=== PATIENT | female | born 1960 | race Caucasian/White ===

== ENCOUNTER 2019-01-21 08:03 | Inpatient (IN) ==
--- NOTE | 2018-12-26 12:43 | Anesthesiology Consultation ---
Date of Service December 26, 2018 Assessment & Plan (1) Encounter for pre-operative examination: PCP Clearance 01/06: "Medical problems as listed above are currently compensated. Medical clearance is approved." Chart Review Chart Review: Acceptable Risk for Surgery and Patient seen in Pre Admission Testing Teaching & Discussion Instructed NPO after midnight before surgery, except medications with 15 cc of water. Medication instructions provided according to the PAT guidelines. History Surgery Operation Date: 01/21/19 13:35 Proposed Procedures p Right Knee Poly Exchange with Possible Revision - Anish Lord DO Height/Weight Height: 5 ft 1 in Weight: 109.3 kg Allergies Allergy/AdvReac Type Severity Reaction Status Date / Time moxifloxacin Allergy Intermediate RASH, EARS Verified 12/24/18 15:26 SWELLED Medications Home Medications Medication Instructions Recorded Confirmed Last Taken B-complex with vitamin C [Super B 1 tab PO QAM 07/31/18 12/24/18 Unknown Complex-Vitamin C] Lactobacillus rhamnosus GG 1 cap PO QAM 07/31/18 12/24/18 Unknown [Culturelle] alirocumab [Praluent Pen] See Rx Instructions .ROUTE .COMPLEX 07/31/18 12/24/18 Unknown alprazolam 0.5 mg PO TID PRN 07/31/18 12/24/18 Unknown amlodipine 5 mg PO QAM 07/31/18 12/24/18 Unknown ascorbic acid (vitamin C) [Vitamin 1 tab PO QDD 07/31/18 12/24/18 Unknown C] aspirin [Aspirin Low Dose] 81 mg PO QAM 07/31/18 12/24/18 Unknown cholecalciferol (vitamin D3) 1,000 unit PO QAM 07/31/18 12/24/18 Unknown [Vitamin D3] chromium picolinate 1,000 mcg PO QAM 07/31/18 12/24/18 Unknown cinnamon bark [Cinnamon] 1,000 mg PO BID 07/31/18 12/24/18 Unknown coQ10 (ubiquinol) 200 mg PO QAM 07/31/18 12/24/18 Unknown cyanocobalamin (vitamin B-12) 5,000 mcg SUBLINGUAL QAM 07/31/18 12/24/18 Unknown [Vitamin B-12] hydrocodone-acetaminophen 1 tab PO Q8H PRN 07/31/18 12/24/18 Unknown insulin detemir U-100 [Levemir 40 unit SUBCUT HS 07/31/18 12/24/18 Unknown FlexTouch U-100 Insuln] melatonin 0.5 mg PO HS PRN 07/31/18 12/24/18 Unknown meloxicam 7.5 mg PO BID 07/31/18 12/24/18 Unknown metformin [Glumetza] 500 mg PO PM 07/31/18 12/24/18 Unknown multivitamin 1 tab PO QAM 07/31/18 12/24/18 Unknown mv-min-vit C-Glu-Adele ac-hb124 4 tab PO QAM PRN 07/31/18 12/24/18 Unknown [Airborne (with lysine acetate)] omega 4-ila-bls-fish oil [Fish Oil] 1 cap PO HS 07/31/18 12/24/18 Unknown omeprazole magnesium [Prilosec OTC] 20 mg PO QAM 07/31/18 12/24/18 Unknown potassium chloride [Klor-Con 10] 10 meq PO QAM 07/31/18 12/24/18 Unknown sertraline 50 mg PO HS 07/31/18 12/24/18 Unknown simvastatin 10 mg PO PM 07/31/18 12/24/18 Unknown sitagliptin [Januvia] 100 mg PO QAM 07/31/18 12/24/18 Unknown turmeric-turmeric root extract 1 cap PO QAM 07/31/18 12/24/18 Unknown valsartan-hydrochlorothiazide 1 tab PO QAM 07/31/18 12/24/18 Unknown ascorbic acid-vitamin E-biotin 3 tab PO QAM 12/24/18 12/24/18 Unknown [Hair, Skin, Nails with Biotin] Past Medical History Medical History Anxiety Bowel and bladder incontinence Bowel incontinence 2/2 IBS-D; patient describes acute colonic spasms and urgent need to defecate. Bladder incontinence has been for "decades," was present prior to reported back injury and lumbar pain issues. Bunion, left foot Depression Diabetes mellitus, type 2 A1C 7.0% 12/26/18. On insulin and metformin. GERD (gastroesophageal reflux disease) Glaucoma was told "borderline" Hearing deficit Herniated disc Had acute injury 2012, chronic pain since. Follows with Dr. Alfonso for injections and has seen Dr Munguia for evaluation. Hx of bursitis right hip Hx of fracture of left hip no surgery Hyperlipidemia Hypertension Hyponatremia 127 on pre-op labs. Reviewed by PCP, felt 2/2 recent corticosteroid injection. Irritable bowel syndrome Osteoarthritis Peptic ulcer disease Sleep apnea does not use any device -- COULD NOT TOLERATE CPAP Spinal stenosis s/p Injection with Dr Alfonso 12/03 Spondylolisthesis Exercise / Class Metabolic Activity III < 4 Walking/Shop/Light housework (Walks at home with cane, uses scooter for longer distances 2/2 back and hip pain. Denies chest pain, occ SOB 2/2 deconditioning) Past Family History Family History Mother Family history of diabetes mellitus Father Family history of diabetes mellitus Brother Family history of diabetes mellitus Grandfather (Maternal) Family history of diabetes mellitus Grandmother (Maternal) Family history of diabetes mellitus Past Surgical History Surgical History History of cholecystectomy History of colonoscopy Hx of arthroscopic knee surgery 2 right and 1 left; gaxiola cyst removal Hx of hysterectomy ovaries remain Hx of total knee replacement right and left Past Anesthesia History No Hx of Anesthesia Complications (other than PONV) and No Family Hx of Anesthesia Complications History of PONV No Hx of Motion Sickness and History of PONV Social History Smoking Status: Former smoker tobacco type: cigarettes Do You Dip or Chew Tobacco: No Smoking End Date: QUIT 5 TO 6 YEARS AGO Hx Alcohol Use: Yes Alcohol type: hard liquor alcohol intake frequency: holidays/special occasions only Hx Substance Use: No substance use type: does not use Review of Systems Pt denies any recent chest pain, shortness of breath, palpitations, cough, fever or URI. Physical Exam Vital Signs BP: 120/72 P: 90bpm SPO2: 94% RA T: 98.1 F R: 16 Constitutional + morbidly obese ENMT Mouth: + dental restorations (one crown); no chipped teeth and no loose teeth Thyromental Distance: > or= 3.5 Finger Breadths (4) Mallampati Class: III Neck + short neck and + thick neck; neck extension not limited Respiratory normal respiratory effort Auscultation: lungs clear to auscultation bilaterally Cardiovascular Rate/Rhythm: regular rate and regular rhythm Heart Sounds: no murmur Vessels: no carotid bruit Extremities: no edema Testing Electrocardiogram Date: 08/08/18 Findings: + NSR @ (91) Rightward axis. Chest X-Ray Date: 08/08/18 Findings: + NAD Laboratory Results 12/26/18 13:10 12/26/18 13:10 PT 10.1 Seconds (9.0-12.0) 12/26/18 13:10 INR 1.0 (0.9-1.1) 12/26/18 13:10 APTT 31.3 Seconds (21.0-31.0) H 12/26/18 13:10 7.0 % (4.5-5.6) H 12/26/18 13:10 Yellow 12/26/18 13:10 Clear (Clear) 12/26/18 13:10 5.0 (4.5-7.5) 12/26/18 13:10 Ur Specific [place] 1.011 (1.000-1.030) 12/26/18 13:10 Negative (Negative) 12/26/18 13:10 Negative (Negative) 12/26/18 13:10 Negative (Negative) 12/26/18 13:10 Negative (Negative) 12/26/18 13:10 Ur Leukocyte Esterase Negative (Negative) 12/26/18 13:10 Blood Type O Positive 12/26/18 13:10 Antibody Screen NEGATIVE 12/26/18 13:10 12/26/18 13:10 Urine Culture - Final Urine,Clean Catch Gram positive bacilli Due to computer error, some headers in lab table above not pulling into document. A1C was 7.0%. See diagnostics tab for further detail. Surgeon's office notified of + UA.
[2018-12-26 13:46] LABS: Basophils # (auto) 0.02 K/uL (0-0.2); Basophils % (auto) 0.2 %; Eosinophils # (auto) 0.14 K/uL (0-0.5); Eosinophils % (auto) 1.7 %; Hematocrit (blood only) 38.3 % (37-47); Hemoglobin 13.8 g/dL (12.0-16.0); Immature Granulocytes # (auto) 0.03 K/uL (0.00-0.02); Immature Granulocytes % (auto) 0.4 %; Lymphocytes # (auto) 1.71 K/uL (1.2-3.4); Lymphocytes % (auto) 21.3 %; Mean Corpuscular Volume 83.8 fL (80-100); Mean Platelet Volume 8.4 fL (7.4-10.4); Monocytes # (auto) 0.57 K/uL (0.11-0.59); Monocytes % (auto) 7.1 %; Neutrophils # (auto) 5.54 K/uL (1.4-6.5); Neutrophils % (auto) 69.3 %; Platelet Count 307 K/uL (130-400); RDW Coefficient of Variation 13.6 % (11.5-14.5); RDW Standard Deviation 41.3 fL (36.4-46.3); Red Blood Count 4.57 M/uL (4.2-5.4); White Blood Count 8.01 K/uL (4.8-10.8)
[2018-12-26 14:05] LABS: Partial Thromboplastin Ratio 1.2; Partial Thromboplastin Time 31.3 Seconds (21.0-31.0); Prothrombin Time 10.1 Seconds (9.0-12.0)
[2018-12-26 14:28] LABS: Appearance Urine Clear (Clear); Bilirubin Urine Negative (Negative); Blood Urine Negative (Negative); Color Urine Yellow; Glucose Urine UA Negative (Negative); Ketones Urine Negative (Negative); Leukocyte Esterase Urine Negative (Negative); Nitrite Urine Negative (Negative); Protein Urine Negative (Negative); Specific Gravity Urine 1.011 (1.000-1.030); Urobilinogen Urine Negative (Negative)
[2018-12-26 14:32] LABS: Estimated Average Glucose 154 mg/dl
[2018-12-26 15:33] LABS: BUN Creatinine Ratio 13.6 (10-20); Calcium 10.2 mg/dl (8.5-10.1); Creatinine Clr Calc Pharmacy 65.3 ml/min; Est GFR (Non-African American) 56.1; Potassium 4.1 mmol/L (3.5-5.1)
[~2019-01-21 08:03] MED LIST: ACETAMINOPHEN 500 MG TAB PO SCH; BUPIVACAINE 0.5 % 5 MG/1 ML PF 10ML VIAL ONE; CEFAZOLIN 2000MG 2,000 MG/15 ML SYR IV SCH; CeleBREX 200 MG CAP PO SCH; FAMOTIDINE 20 MG TAB PO SCH; GABAPENTIN 300 MG PO SCH; LR 500ML BOLUS, THEN 15ML/HR IV SCH; METOCLOPRAMIDE HCL 10 MG TABLET PO SCH; ROPIVACAINE 0.5% 5 MG/ML 30 ML VIAL ONE; SCOPOLAMINE 1.5 MG TDSY TD SCH; TRANEXAMIC ACID 1,000 MG **IV Intra-op IV SCH; TRANEXAMIC ACID 1,000 MG **IV Pre-op IV SCH; dexAMETHasone 4 MG TAB PO SCH
--- NOTE | 2019-01-21 08:30 | History & Physical Bridge Note ---
Date of Service January 21, 2019 History & Physical Bridge Note I have examined the patient, reviewed the History & Physical and in the interval since the performance of the History & Physical I have noted the following changes of clinical significance: possible revision knee arthroplasty
[2019-01-21] MEDS ORDERED: fentaNYL citrate 100 MCG/2 ML VIAL ONE (09:11)
[2019-01-21] MEDS ORDERED: MIDAZOLAM HCL 1 MG/ML 2ML VIAL ONE (09:11)
[2019-01-21] MEDS ORDERED: ATROPINE SULFATE 0.1 MG/ML 10ML SYR IV PRN (10:01)
[2019-01-21] MEDS ORDERED: fentaNYL citrate 100 MCG/2 ML VIAL IV PRN (10:01)
[2019-01-21] MEDS ORDERED: ONDANSETRON INJ 2 MG/ML 2 ML VIAL IV PRN ×2 (10:01→12:53)
[2019-01-21] MEDS ORDERED: ePHEDrine sulfate 50 MG/ML AMP IV PRN (10:01)
[2019-01-21] MEDS ORDERED: BACITRACIN INJ 50,000 UNIT VIAL ONE (10:09)
[2019-01-21] MEDS ORDERED: POVIDONE-IODINE OP SOLN 30 ML BTL ONE (10:09)
[2019-01-21] MEDS ORDERED: LIDOCAINE HCL 2% 2 ML VIAL/AMP(20MG/ML) INFIL ONE (10:33)
[2019-01-21] MEDS ORDERED: PROPOFOL IV EMULSION 10 MG/ML 20 ML VIAL IV ONE (10:33)
[2019-01-21] MEDS ORDERED: ONDANSETRON INJ 2 MG/ML 2 ML VIAL ONE (10:33)
--- NOTE | 2019-01-21 11:05 | Operative Report ---
Post Operative Report Pre & Post Diagnosis Operation Date: 01/21/19 11:00 Pre-Op Diagnosis: Painful status post right total knee arthroplasty Procedure Loose poly-right total knee arthroplasty with upsized poly-to size one 2 x 13 mm poly-cristian 1 right total knee arthroplasty Operation Date: 01/21/19 11:00 <No data on this case meets the specified criteria> Surgeon Anish Lord DO [employer] Gama VARGAS Estimated Blood Loss 5 Findings Consistent with Post-Op Diagnosis Patient presents with clinical examination with ligament laxity medial lateral collateral ligaments in need of change of poly-no evidence of tibial component loosening femoral component loosening or patellar loosening is noted examination consistent with that of laxity in extension mid flexion and flexion the poly-was noted to be worn and was in need of upsized Specimens Poly- Drains None Complications none Disposition Accompanied Patient To Recovery: No Disposition: Recovery Room Indications Patient presents with a clear examination of ligamentous laxity in extension mid flexion and flexion no response to conservative management including bracing physical therapy anti-inflammatories relative rest activity modification pain presents for poly-change upsizing poly- Description of Procedure After proper prepping draping the right lower extremity the right knee was examined there is a be evidence of market laxity as noted above in both flexion extension mid flexion subsequently after proper prepping draping the right upper extremity and anterior incision was made dissection carried down the region of the extensor mechanism medial parapatellar incision was made the patella was subluxed lateralward no evidence of any type of inflammation or synovitis was noted no no type of infectious issue were noted there is clearly laxity attributed to the polyethylene size and the poly-was removed wound was irrigated with copious muscle sterile saline solution tibial component femoral component patellar component were all inspected no evidence of loosening was noted patella was trialed the poly-was trialed to a size 13 gave excellent full stability in both extension flexion mid flexion having upsized the poly-the poly-was subsequently changed out the wound was irrigated once again with copious sterile saline solution the medial parapatellar incision closed #1 Vicryl subcuticular 2-0 Vicryl skin was closed with a skin clips sterile compressive dressing was placed patient was taken recovery in stable condition operative report dictated by Pop VARGAS was necessary prepping draping retraction wound closure was necessary for the case I attest to the content of the Intraoperative Record and any orders documented therein. Any exceptions are noted below.
--- NOTE | 2019-01-21 11:52 | XRay Report ---
RIGHT KNEE 2 VIEWS History: Right total knee arthroplasty. Degenerative arthritis. Postop. FINDINGS: The patient is status post a right total knee arthroplasty. The hardware is intact. No frac ture or dislocation. Skin jerome are in place. IMPRESSION: Right total knee arthroplasty. No evidence for hardware complication. Electronically signed by: Mau Aburto M.D. 01/21/2019 11:50 AM
--- NOTE | 2019-01-21 12:20 | Anesthesiology Progress Note ---
Date of Service January 21, 2019 Anesthesia Post Procedure Vital Signs Vital Signs: Temp Pulse Pulse Resp BP Pulse Ox 01/21/19 12:10 97.9 F 89 14 115/71 95 01/21/19 12:00 87 16 114/70 96 01/21/19 11:50 87 14 121/66 100 01/21/19 11:40 88 15 106/70 98 01/21/19 11:30 96.8 F L 88 13 101/62 98 01/21/19 08:37 98.6 F 88 20 123/65 95 Pain Intensity Right Knee: Pain Intensity: 0 Transfer of Care Handoff Completed per policy Notes Mental Status: alert / awake / arousable and participated in evaluation Patient Amnestic to Procedure: Yes Nausea / Vomiting: adequately controlled Pain: adequately controlled Airway Patency, RR, SpO2: stable & adequate BP & HR: stable & adequate Hydration State: stable & adequate Neuraxial Anesthesia: was administered and sensory block is resolving Anesthetic Complications: no major complications apparent and Pt Satisfied with anesthetic care
[2019-01-21] MEDS ORDERED: BISACODYL 10 MG SUPP PR PRN (12:53)
[2019-01-21] MEDS ORDERED: NALOXONE HCL 0.4 MG/1 ML VIAL/CARP IV PRN (12:53)
[2019-01-21] MEDS ORDERED: MAGNESIUM HYDROXIDE SUSP 30 ML UDC PO PRN (12:53)
[2019-01-21] MEDS ORDERED: SODIUM CHLORIDE 0.9% 1000ML 1,000 ML IV SCH (12:53)
[2019-01-21] MEDS: ACETAMINOPHEN 500 MG TAB PO SCH ×2 (13:14→20:54)
[2019-01-21] MEDS ORDERED: INSULIN DETEMIR FLEXPEN/FLEX TOUCH 100 UNITS/ML 3ML SQ STA (13:41)
[2019-01-21] MEDS ORDERED: PHARMACY GLYCEMIC MGMT CONSULT PRN (13:41)
[2019-01-21] MEDS ORDERED: INSULIN ASPART 100 UNITS/ML 3 ML PEN SC SCH (14:00)
--- NOTE | 2019-01-21 15:06 | Pharmacy Report ---
Glycemic Control Consultation - Date of Service January 21, 2019 - Scope Scope: Glycemic Pharmacist consulted by Gama Archer on 01/21/19 for glycemic control and to write orders per [facility] inpatient glycemic control protocol - Objective Weight: 108 kg Accuchecks BSG (last 24hrs): 01/21/19 01/21/19 08:37 11:33 POC Glucose 180 H 171 H HbA1c: 7.0 % (4.5-5.6) H 12/26/18 13:10 - Recent Pertinent Medications Outpatient Anti-diabetic Regimen: * Levemir 40u HS, Metformin, Januvia * A1c = 7.0 % 12/26/18 - Assessment & Plan Assessment & Plan: ASSESSMENT: * Pt is a 58yo F s/p TKA. PMHx consistent with HLD, MARIANELA, GERD, DMII, among others. Oupt glycemic management is improving, previous A1C 8.2% now 7.0%. She is maintained on Levemir 40u HS, Metformin, Januvia. She received DXM 8mg PO krishna-operatively. She is ordered a diet. * [employer]: evening 01/20/19 @2100 she received 20u Levemir PLAN FOR INPATIENT GLYCEMIC CONTROL: * Holding outpatient oral diabetes medications * Basal insulin * Levemir 40units as soon as she reaches the floor then levemir scale this evening X1. See MAR for further details * Bolus insulin * NovoLog per scale ACHS or Q6hrs while NPO * Goal Range: Low 110 mg/dL - High 140 mg/dL * Correction Factor: 15 mg/dL/unit * Nutritional / Prandial insulin per carb ratio of 1 unit per 5 grams CHO consumed * adding 00,04 checks * Please note that the plan above was derived based on current level of insulin resistance and hospital stress. These recommendations are appropriate for inpatient admission only. Plan of care upon discharge will need to be reassessed to avoid potential outpatient hypo/hyperglycemia. Thank you.
[2019-01-21 15:21] LABS: iSTAT Creatinine 0.9 mg/dl (0.6-1.3); iSTAT Hemoglobin 12.6 g/dl (12.0-16.0); iSTAT Ionized Calcium 1.29 mmol/l (1.12-1.32); iSTAT Potassium 3.6 mEq/L (3.3-5.0)
--- NOTE | 2019-01-21 15:28 | Consultation ---
Date of Consultation January 21, 2019 Assessment & Plan (1) Painful total knee replacement, right: S/P Loose poly-right total knee arthroplasty with upsized poly-to size one 2 x 13 mm poly-journey 1 right total knee arthroplasty By Dr. Lord POD # 0 tolerated procedure well EBL 5ml pain/wound per ortho activities and therapy as directed by ortho monitor cbc for acute blood loss anemia Pre Op H/H 12.6/37 incentive spirometry encouraged (2) Diabetes mellitus, type 2: A1C 7.0 Pt on Januvia, metformin, Levemir 40 units daily as outpt Glycemic pharmacist consulted per ortho (3) Hypertension: blood pressure acceptable place HCTZ on hold and reevaluate volume status in a.m. continue amlodipine and valsartan (4) Hyperlipidemia: continue statin (5) Depression: mood stable, continue zoloft (6) DVT prophylaxis: SCDS/TEDS ASA bid x 1 month per ortho Disposition: per primary Follow up: PCP at [facility] upon discharge Patient was seen and examined in collaboration with Dr. Kennedy, please see addendum Starting 01/22/19 patient will be under the care for Dr. Avalos Supervising Physician Co-Signing Physician Notes Patient is a 58-year-old female with history of hypertension, diabetes, obstructive sleep apnea, dyslipidemia and other problems who was seen and examined postop after having right TKA. Patient is doing well postop. Complains of mild pain of the right knee at surgical site. Denies any chest pain, shortness of breath, dizziness, abdominal pain. On exam patient is obese, no apparent distress, normocephalic atraumatic, lungs are clear to auscultation, S1-S2, no murmur, abdomen soft nontender, right knee surgical site in dressing, grossly no focal neurological deficits, no pedal edema. Hold p.o. diabetic medications. Insulin therapy while hospitalized. Agree with above assessment and plan and management. I personally reviewed the record. Patient is interviewed and examined at bedside. Patient's care is coordinated with Rianna Serrano PA-C. Please refer to the documentation above for details of patient's presentation and for discussion of other issues. History of Present Illness Requesting Physician: Dr. Lord Reason for Consultation: Postop medical management Attending Physician: Anish Lord, DO History of Present Illness This is a 58-year-old female who has a significant PMH of HTN, HLD, T2 DM, MARIANELA intolerant to CPAP, OADJD, depression and anxiety, LSS, PUD who presents to [facility] for elective right TKA poly-exchange by Dr. Lord. is at bedside. Patient has history of prior bilateral TKAs approximately 10 years ago. Has been having chronic right knee pain. She tolerated procedure well. Currently she feels well. Denies any current pain. Denies any fever, chills, sweats, lightheadedness, dizziness, chest pain, shortness breath, nausea, vomiting, diarrhea, abdominal pain. Allergies Allergy/AdvReac Type Severity Reaction Status Date / Time moxifloxacin Allergy Intermediate RASH, EARS Verified 01/21/19 08:31 SWELLED Home Medications Home Medications Medication Instructions Recorded Confirmed Type B-complex with vitamin C [Super B 1 tab PO QAM 07/31/18 01/21/19 History Complex-Vitamin C] Lactobacillus rhamnosus GG 1 cap PO QAM 07/31/18 01/21/19 History [Culturelle] alirocumab [Praluent Pen] See Rx Instructions .ROUTE .COMPLEX 07/31/18 12/24/18 History alprazolam 0.5 mg PO TID PRN 07/31/18 01/21/19 History amlodipine 5 mg PO QAM 07/31/18 01/21/19 History ascorbic acid (vitamin C) [Vitamin 1 tab PO QDD 07/31/18 12/24/18 History C] aspirin [Aspirin Low Dose] 81 mg PO QAM 07/31/18 01/21/19 History cholecalciferol (vitamin D3) 1,000 unit PO QAM 07/31/18 01/21/19 History [Vitamin D3] cinnamon bark [Cinnamon] 1,000 mg PO BID 07/31/18 01/21/19 History coQ10 (ubiquinol) 200 mg PO QAM 07/31/18 01/21/19 History cyanocobalamin (vitamin B-12) 5,000 mcg SUBLINGUAL QAM 07/31/18 01/21/19 History [Vitamin B-12] hydrocodone-acetaminophen 1 tab PO Q8H PRN 07/31/18 01/21/19 History insulin detemir U-100 [Levemir 40 unit SUBCUT HS 07/31/18 01/21/19 History FlexTouch U-100 Insuln] melatonin 0.5 mg PO HS PRN 07/31/18 01/21/19 History meloxicam 7.5 mg PO BID 07/31/18 01/21/19 History metformin [Glumetza] 500 mg PO PM 07/31/18 01/21/19 History multivitamin 1 tab PO QAM 07/31/18 01/21/19 History mv-min-vit C-Glu-Adele ac-hb124 4 tab PO QAM PRN 07/31/18 01/21/19 History [Airborne (with lysine acetate)] omega 1-lxo-mxu-fish oil [Fish Oil] 1 cap PO HS 07/31/18 01/21/19 History omeprazole magnesium [Prilosec OTC] 20 mg PO QAM 07/31/18 01/21/19 History potassium chloride [Klor-Con 10] 10 meq PO QAM 07/31/18 01/21/19 History sertraline 50 mg PO HS 07/31/18 01/21/19 History simvastatin 10 mg PO PM 07/31/18 01/21/19 History sitagliptin [Januvia] 100 mg PO QAM 07/31/18 01/21/19 History turmeric-turmeric root extract 1 cap PO QAM 07/31/18 01/21/19 History valsartan-hydrochlorothiazide 1 tab PO QAM 07/31/18 01/21/19 History ascorbic acid-vitamin E-biotin 3 tab PO QAM 12/24/18 12/24/18 History [Hair, Skin, Nails with Biotin] mirabegron [Myrbetriq] 25 mg PO DAILY 01/21/19 01/21/19 History Patient History Family History Mother Family history of diabetes mellitus Father Family history of diabetes mellitus Brother Family history of diabetes mellitus Grandfather (Maternal) Family history of diabetes mellitus Grandmother (Maternal) Family history of diabetes mellitus Social History Preferred Language: Tamazight Communication Ability: Effective Slipper Maker Required: No Beliefs That Will Affect Care: None Current Living Situation: Spouse Other Information That Helps Us Care for You: No Feels Safe at Home: Yes Safety Concerns: Feels Safe At This Time Smoking Status: Former smoker Tobacco Type: cigarettes Do You Dip or Chew Tobacco: No Smoking End Date: QUIT 5 TO 6 YEARS AGO Second Hand Exposure: No Tobacco Cessation Education Requested by Patient: No Hx Alcohol Use: Yes Alcohol type: hard liquor Hx Substance Use: No Review of Systems Review of Systems: As noted per HPI, 10 systems reviewed and negative unless noted above. Physical Exam Physical Exam: Gen: WD/WN, Obese, F, NAD, sitting up in bed, pleasant, conversing easily Head: Normocephalic, Atraumatic Eyes: Sclera normal, no conjunctival injection, PERRLA, EOMI ENT: Gross hearing intact, normal pharynx, mucous membranes moist Neck: supple, no adenopathy, No JVD, no bruit, Resp: Clear to auscultation b/l, no wheeze, rales, rhonchi. Normal insp/exp effort, no accessory muscle use CV: Regular rate, regular rhythm, no murmur, rub, gallop, or ectopy Abd: Obese abdomen, +BS x 4, soft, nontender Musculoskeletal: moves extremities active rom x 2, strength intact, good pastry wrapper strength, lower extremities not examined given post op Extremities: RLE edema, dressing CDI, hemovac in place, No LLE, SCDS/TEDS Skin: warm, moist, no rash, negative turgor, cap refill < 2sec Neuro: Alert and oriented x 3, speech normal, good mood/affect, cran nerve 2-12 intact grossly : deferred Results & Data Vital Signs (Past 12 Hours) Vital Signs Temp Pulse Pulse Resp BP Pulse Ox 01/21/19 14:23 36.6 C 93 H 20 113/69 97 01/21/19 13:38 36.6 C 87 20 110/79 98 01/21/19 13:06 36.5 C 92 H 20 129/75 97 01/21/19 12:40 36.4 C L 91 H 16 124/77 95 01/21/19 12:20 90 13 124/71 96 01/21/19 12:10 36.6 C 89 14 115/71 95 01/21/19 12:00 87 16 114/70 96 06/05/19 11:50 87 14 121/66 100 01/21/19 11:40 88 15 106/70 98 01/21/19 11:30 36.0 C L 88 13 101/62 98 01/21/19 08:37 37 C 88 20 123/65 95 Laboratory Results 01/21/19 01/21/19 01/21/19 Range/Units 11:33 09:59 08:37 POC Hgb 12.6 (12.0-16.0) g/dl POC Hct 37 (37-47) % POC Sodium 137 (135-144) mEq/L POC Potassium 3.6 (3.3-5.0) mEq/L POC Chloride 99 L (101-112) mEq/L POC Total CO2 25 (24-31) mEq/l POC Anion Gap 16.0 (16-25) mmol/L POC BUN 10 (7-18) mg/dl POC Creatinine 0.9 (0.6-1.3) mg/dl POC Glucose 171 H 180 H (70-99) POC Glucose (other) 167 H (70-99) mg/dl POC Ioniz Calcium Phyllis 1.29 (1.12-1.32) mmol/l Blood Type Antibody Screen Crossmatch Draw and Hold 01/21/19 Range/Units 08:27 POC Hgb (12.0-16.0) g/dl POC Hct (37-47) % POC Sodium (135-144) mEq/L POC Potassium (3.3-5.0) mEq/L POC Chloride (101-112) mEq/L POC Total CO2 (24-31) mEq/l POC Anion Gap (16-25) mmol/L POC BUN (7-18) mg/dl POC Creatinine (0.6-1.3) mg/dl POC Glucose (70-99) POC Glucose (other) (70-99) mg/dl POC Ioniz Calcium Phyllis (1.12-1.32) mmol/l Blood Type O Positive Antibody Screen NEGATIVE Crossmatch See Detail Draw and Hold Cancelled Diagnostic Findings R Knee Xray: IMPRESSION: Right total knee arthroplasty. No evidence for hardware complication. Medications Administered Acetaminophen (Tylenol) 1,000 mg PO Q8 MARCELLO Stop: 02/20/19 13:59 Last Admin: 01/21/19 13:14 Dose: 1,000 mg Documented by: [id number] Sodium Chloride (Nss 1000ml) 1,000 mls @ 100 mls/hr IV .Q10H MARCELLO Stop: 01/22/19 06:00 Last Admin: 01/21/19 13:13 Dose: 100 mls/hr Documented by: [id number] Discontinued Medications Acetaminophen (Tylenol) 1,000 mg PO PREOP MARCELLO Stop: 01/21/19 18:00 Last Admin: 01/21/19 08:54 Dose: 1,000 mg Documented by: [id number] Bacitracin (Bacitracin) Confirm Administered Dose 50,000 units .ROUTE .[facility] Stop: 01/21/19 10:10 Last Admin: 01/21/19 11:28 Dose: 50,000 units Documented by: [id number] Celecoxib (Celebrex) 200 mg PO PREOP MARCELLO Stop: 01/21/19 18:00 Last Admin: 01/21/19 08:53 Dose: Not Given Documented by: [id number] Dexamethasone (Decadron) 8 mg PO PREOP MARCELLO Stop: 01/21/19 18:00 Last Admin: 01/21/19 08:52 Dose: 8 mg Documented by: [id number] Famotidine (Pepcid) 20 mg PO PREOP MARCELLO Stop: 01/21/19 18:00 Last Admin: 01/21/19 08:53 Dose: 20 mg Documented by: [id number] Gabapentin (Neurontin) 300 mg PO PREOP MARCELLO Stop: 01/21/19 18:00 Last Admin: 01/21/19 08:54 Dose: 300 mg Documented by: [id number] Lactated Ringer's (Lr) 1,000 mls @ 15 mls/hr IV .Q24H MARCELLO Stop: 01/21/19 18:00 Last Infusion: 01/21/19 10:23 Dose: 0 mls/hr Documented by: [id number] Admin: 01/21/19 08:51 Dose: 15 mls/hr Documented by: [id number] Cefazolin Sodium (Ancef 2000mg) 2,000 mg in 15 mls @ 3.75 mls/min IV PREOP MARCELLO; Protocol Stop: 01/21/19 18:00 Last Admin: 01/21/19 10:21 Dose: 3.75 mls/min Documented by: [id number] Tranexamic Acid 1,000 mg/ (Sodium Chloride) 110 mls @ 660 mls/hr IV TODAY@0600 MARCELLO Stop: 01/21/19 06:09 Last Infusion: 01/21/19 12:41 Dose: 0 mls/hr Documented by: [id number] Admin: 01/21/19 10:06 Dose: 660 mls/hr Documented by: [id number] Tranexamic Acid 1,000 mg/ (Sodium Chloride) 110 mls @ 660 mls/hr IV 0630 [facility] Stop: 01/21/19 06:39 Last Admin: 01/21/19 12:41 Dose: Not Given Documented by: [id number] Insulin Aspart (Novolog Flexpen) 0 units SC ACHS [facility]; Protocol Stop: 02/20/19 13:59 Last Admin: 01/21/19 14:23 Dose: 8 units Documented by: [id number] Cosigned by: [id number] Insulin Detemir (Levemir Flextouch) 40 units SQ NOW STA; Protocol Stop: 01/21/19 13:42 Last Admin: 01/21/19 14:21 Dose: 40 units Documented by: [id number] Cosigned by: [id number] Metoclopramide HCl (Reglan) 10 mg PO PREOP MARCELLO Stop: 01/21/19 18:00 Last Admin: 01/21/19 08:53 Dose: 10 mg Documented by: [id number] Povidone Iodine (Betadine Ophthalmic Prep) Confirm Administered Dose 30 ml .ROUTE .STK-MED ONE Stop: 01/21/19 10:10 Last Admin: 01/21/19 11:28 Dose: 30 ml Documented by: [id number] Scopolamine (Transderm-Scop) 1.5 mg TD PREOP MARCELLO Stop: 01/21/19 18:00 Last Admin: 01/21/19 08:52 Dose: 1.5 mg Documented by: [id number] ECG Rate (beats per minute): 104 Rhythm: sinus tachycardia
[2019-01-21] MEDS ORDERED: CHECK SCOPOLAMINE PATCH PLACEMENT SCH (16:00)
[2019-01-21] MEDS: CEFAZOLIN 2000MG 2,000 MG/15 ML SYR IV SCH (18:04)
[2019-01-21] MEDS: INSULIN ASPART 100 UNITS/ML 3 ML PEN SC SCH ×2 (18:05→21:41)
[2019-01-21] MEDS: OXYCODONE HCL IR 5 MG TAB (IMMEDIATE RELEASE) PO PRN ×3 (18:09→23:03)
[2019-01-21] MEDS: SERTRALINE HCL 50 MG TABLET PO SCH (20:53)
[2019-01-21] MEDS: SENNA 8.6 MG TAB PO SCH (20:53)
[2019-01-21] MEDS: ASPIRIN 81 MG ECTAB PO SCH (20:53)
[2019-01-21] MEDS: SIMVASTATIN 10 MG TAB PO SCH (20:53)
[2019-01-21] MEDS: DOCUSATE SODIUM 100 MG CAP PO SCH (20:53)
[2019-01-21] MEDS ORDERED: INSULIN DETEMIR FLEXPEN/FLEX TOUCH 100 UNITS/ML 3ML SC ONE (21:00)
[2019-01-21] MEDS: ALPRAZolam 0.5 MG TABLET PO PRN (21:40)
[2019-01-22] MEDS: INSULIN ASPART 100 UNITS/ML 3 ML PEN SC SCH ×6 (00:05→21:36)
[2019-01-22] MEDS: CEFAZOLIN 2000MG 2,000 MG/15 ML SYR IV SCH (01:30)
[2019-01-22] MEDS: HYDROmorphone INJ 0.5 MG/0.5 ML SYR IV PRN ×2 (02:45→07:16)
[2019-01-22] MEDS: ACETAMINOPHEN 500 MG TAB PO SCH ×3 (06:27→20:37)
[2019-01-22 07:02] LABS: Hematocrit (blood only) 35.4 % (37-47); Hemoglobin 12.3 g/dL (12.0-16.0); Mean Corpuscular Hgb Conc 34.7 g/dL (32-36); Mean Corpuscular Volume 86.6 fL (80-100); Mean Platelet Volume 8.5 fL (7.4-10.4); Platelet Count 293 K/uL (130-400); RDW Coefficient of Variation 13.8 % (11.5-14.5); RDW Standard Deviation 43.7 fL (36.4-46.3); Red Blood Count 4.09 M/uL (4.2-5.4); White Blood Count 15.51 K/uL (4.8-10.8)
[2019-01-22 07:31] LABS: BUN Creatinine Ratio 11.7 (10-20); Calcium 9.6 mg/dl (8.5-10.1); Est GFR (African American) 66.5; Est GFR (Non-African American) 57.3; Potassium 3.8 mmol/L (3.5-5.1)
[2019-01-22] MEDS ORDERED: KETOROLAC 30 MG/ML VIAL IV ONE (08:22)
[2019-01-22] MEDS ORDERED: OXYCODONE HCL IR 5 MG TAB (IMMEDIATE RELEASE) PO PRN (08:24)
[2019-01-22] MEDS: PANTOprazole 40 MG TAB PO SCH (08:39)
[2019-01-22] MEDS: CYANOCOBALAMIN (VITAMIN B-12) 2,500 MCG TAB.SUBL SL SCH (08:39)
[2019-01-22] MEDS: VALSARTAN 80 MG TAB PO SCH (08:39)
[2019-01-22] MEDS: MULTIVITAMIN TAB PO SCH (08:39)
[2019-01-22] MEDS: DOCUSATE SODIUM 100 MG CAP PO SCH ×2 (08:39→20:37)
[2019-01-22] MEDS: AMLODIPINE BESYLATE 5 MG TAB PO SCH (08:39)
[2019-01-22] MEDS: MIRABEGRON ER 25 MG TAB PO SCH (08:40)
[2019-01-22] MEDS: CHOLECALCIFEROL 1,000 UNITS TAB PO SCH (08:40)
[2019-01-22] MEDS: ASPIRIN 81 MG ECTAB PO SCH ×2 (08:40→20:38)
[2019-01-22] MEDS: POTASSIUM CHLORIDE 10 MEQ TABCR PO SCH (08:41)
[2019-01-22] MEDS: MoRPHine SULFATE CR 15 MG TABCR PO SCH ×2 (08:44→20:37)
--- NOTE | 2019-01-22 08:55 | Pharmacy Report ---
Pharmacy Glycemic Short Note 2 - Date of Service January 22, 2019 - Glycemic Short BSG Results (Last 24 hours): 01/21/19 01/21/19 01/21/19 09:59 11:33 13:24 Glucose POC Glucose 171 H 197 H POC Glucose (other) 167 H 01/21/19 01/21/19 01/21/19 17:55 21:08 23:48 Glucose POC Glucose 246 H 260 H 219 H POC Glucose (other) 01/22/19 01/22/19 01/22/19 03:40 06:40 08:22 Glucose 130 H POC Glucose 127 H 132 H POC Glucose (other) OUTPATIENT ANTIDIABETIC REGIMEN: * Levemir 40u HS * Metformin 500mg PO HS * Januvia 100mg PO QAM * A1c = 7.0 % 12/26/18 ASSESSMENT: * POD1 TKA - blood sugars at goal, will resume home dose of Levemir tonight and continue CF and CR until blood sugars trend down below goal, then will consider loosening. * May resume oral medications tomorrow and loosen CF and CR at that time. * Oral agents are not recommended for inpatient use d/t drug interactions, changing PO intake, and difficulty titrating for acute hyper/hypoglycemia. ADA recommends re-initiating outpatient oral agents 1-2 days prior to discharge if/when appropriate if they were held on admission. * ADA & AACE recommend a goal blood sugar range 140-180 mg/dl for the majority of critically ill & non-critically ill patients. However, more stringent targets may be selected in individual cases. Will utilize more stringent goal of 110-140mg/dl based on patient age & comorbidities. Additionally, tighter glycemic control is warranted to facilitate wound/infection healing. PLAN FOR INPATIENT GLYCEMIC CONTROL: * Hold outpatient oral diabetes medications * Basal insulin * Levemir 40 units SQ HS * Bolus insulin * NovoLog per scale ACHS or Q6hrs while NPO * Goal Range: Low 110 mg/dL - High 140 mg/dL * Correction Factor: 15 mg/dL/unit * Nutritional / Prandial insulin per carb ratio of 1 unit per 5 grams CHO consumed PLAN FOR DISCHARGE: * A1c 7.0% - continue current regimen unless having hypoglycemia at home
[2019-01-22] MEDS ORDERED: SITAGLIPTIN PHOSPHATE 100 MG TAB PO SCH (09:00)
[2019-01-22] MEDS ORDERED: VALSARTAN/HCTZ 320/12.5 MG TAB PO SCH (09:00)
[2019-01-22] MEDS ORDERED: hydroCHLOROthiazide 25 MG TAB PO SCH (09:00)
[2019-01-22] MEDS ORDERED: NON-FORMULARY MEDICATION (Coq10 (Ubiquinol) 200 MG) PO SCH (09:00)
--- NOTE | 2019-01-22 09:59 | Hospitalist Progress Note ---
Date of Service January 22, 2019 Assessment & Plan (1) Painful total knee replacement, right: Post op day# 1 S/P Poly exchange R knee by Dr Pop DASILVA #5ml Had some increased pain last night, had some pain med changes and has improved today -pain management per ortho -wound management per ortho -PT/OT as appropriate -DVT prophylaxis per ortho -incentive spirometry -Hgb: 12, was 13.8 pre-op (2) Leukocytosis: WBC: 15 Afebrile, no cough, SOB, urinary symptoms Had decadron pre-op. May be post surgery reaction -monitor for further symptoms and consider further workup if becomes symptomatic -monitor CBC (3) Diabetes mellitus, type 2: A1C 7.0 -Home Januvia, metformin on hold -Glycemic pharmacist on board and home Levemir being adjusted for improved BSG control (4) Hypertension: Stable -Resume HCTZ tomorrow -Continue amlodipine and valsartan (5) Hyperlipidemia: -continue statin (6) Depression: mood stable -Continue zoloft (7) DVT prophylaxis: SCDS/TEDS ASA bid x 1 month per ortho Disposition: per primary Follow up: PCP at [facility] upon discharge Patient was seen and examined in collaboration with Dr. Peterson, please see addendum Supervising Physician Co-Signing Physician Notes Attending Addendum: care coordinated with ALICIA Mark please refer to her notes for full details, I agree with her notes patient seen and examined, records reviewed by myself as well on exam, patient seen resting in bed, comfortable States pain has been well controlled Denies chest pain, shortness of breath, dizziness, palpitations, nausea no other symptoms VS noted and reviewed oriented x3, not in distress, speaks in sentences with no effort nor accessory muscle use normal rate, regular rhythm, no murmurs clear breath sounds bilaterally non distended, soft, nontender Knee: Dressing in place no signs of bleeding or discharge no bipedal edema, erythema, warmth no neuro deficits WBC 15.5 Hg 12.3 Crea 293 ASSESSMENT AND PLAN Status post knee surgery Stable overall Pain control, DVT prophylaxis per Ortho service Hypertension Continue amlodipine and losartan, HCTZ DM type II Pharmacy consulted for glycemic control other diagnoses and plan of care as per ALICIA Mark notes Nicholas Avalos MD Subjective F/U Medical management. Pt seen and examined sitting in bedside chair Pt states last night had moderate pain and has had pain meds changed and this morning pain is controlled. No BM today, reports is passing flatus. Urinating without difficulty. Denies N/V, CP, SOB, ANTONIO, dizziness, chills, diaphoresis, syncope, orthopnea, palpitations, cough, sore throat, choking, otalgia, rhinorrhea, abdominal pain, increased paresthesias (chronic paresthesias to feet ), rashes, urinary symptoms. Review of Systems Review of Systems: All systems reviewed & are unremarkable except as noted in HPI & below Physical Exam Physical Exam: General: no distress, obese Head: normocephalic, atraumatic Eyes: PERRL, EOM's intact, conjunctiva non-injected, anicteric ENT: normal inspection external ears, nose, mucous membranes moist Neck: supple, trachea midline Lungs: clear, no respiratory distress, no wheezing/rhonchi/rales CV: RRR, no murmur, no pretibial edema Abd: normal BS, soft, non-tender Ext: no cyanosis, no calf tenderness; R knee with dressing in place and is dry, pedal pushes and pulls intact bilaterally, distal pulses intact, sensation to light touch intact Neuro: A&O x 3, no focal deficits noted, normal affect Skin: warm, dry Results & Data Vital Signs (Past 12 Hours) Vital Signs Temp Pulse Resp BP Pulse Ox 01/22/19 07:20 36.7 C 89 16 120/79 96 01/22/19 03:44 36.8 C 91 H 16 122/76 97 01/21/19 23:11 36.4 C L 98 H 18 130/78 95 Laboratory Results Short CBC 01/22/19 Range/Units 06:40 WBC 15.51 H (4.8-10.8) K/uL Hgb 12.3 (12.0-16.0) g/dL Hct 35.4 L (37-47) % Plt Count 293 (130-400) K/uL BMP 01/22/19 06:40 Sodium 137 Potassium 3.8 Chloride 106 Carbon Dioxide 25 BUN 13 Creatinine 1.08 Glucose 130 H Calcium 9.6
--- NOTE | 2019-01-22 10:07 | Orthopedic Progress Note ---
Date of Service January 22, 2019 Assessment & Plan (1) Painful total knee replacement, right: PT OT protocols today. Weightbearing as tolerated. DVT prophylaxis with aspirin twice daily, Ramirez, ROBERTO hannon. Pain management-patient has history of chronic use of hydrocodone at home. Will add MS Contin twice daily. One-time dose of Toradol. Will adjust oxycodone as necessary. DC planning-patient planning for home with home health services. Subjective Postop day 1 status post right polyethylene bearing change status post TKA. Patient complaining of pain this morning. She states that she tried taking the oxycodone, but only 1 tablet last night, which did not seem to help. By this morning she needed to use the IV Dilaudid. We discussed that she needed to take 2 pills initially with her history of using [place] at home. Down the road, we can begin weaning her to 1 tablet if needed. She denies shortness of breath, chest pain, lightheadedness. She denies calf pain. She had no other complaints. Physical Exam Physical Exam: Dressings are clean, dry, and intact. Calves are soft nontender. Toes are mobile. Neurovascular intact. Results & Data Vital Signs (Past 12 Hours) Vital Signs Temp Pulse Resp BP Pulse Ox 01/22/19 07:20 36.7 C 89 16 120/79 96 01/22/19 03:44 36.8 C 91 H 16 122/76 97 01/21/19 23:11 36.4 C L 98 H 18 130/78 95 Laboratory Results Laboratory Results WBC 15.51 K/uL (4.8-10.8) H 01/22/19 06:40 RBC 4.09 M/uL (4.2-5.4) L 01/22/19 06:40 Hgb 12.3 g/dL (12.0-16.0) 01/22/19 06:40 POC Hgb 12.6 g/dl (12.0-16.0) 01/21/19 09:59 Hct 35.4 % (37-47) L 01/22/19 06:40 POC Hct 37 % (37-47) 01/21/19 09:59 MCV 86.6 fL (80-100) 01/22/19 06:40 MCH 30.1 pg (25-34) 01/22/19 06:40 MCHC 34.7 g/dL (32-36) 01/22/19 06:40 RDW Std Deviation 43.7 fL (36.4-46.3) 01/22/19 06:40 RDW Coeff of Rosa 13.8 % (11.5-14.5) 01/22/19 06:40 Plt Count 293 K/uL (130-400) 01/22/19 06:40 MPV 8.5 fL (7.4-10.4) 01/22/19 06:40 Immature Gran % (Auto) 0.4 % 12/26/18 13:10 Neut % (Auto) 69.3 % 12/26/18 13:10 Lymph % (Auto) 21.3 % 12/26/18 13:10 Rowan % (Auto) 7.1 % 12/26/18 13:10 Eos % (Auto) 1.7 % 12/26/18 13:10 Baso % (Auto) 0.2 % 12/26/18 13:10 Immature Gran # (Auto) 0.03 K/uL (0.00-0.02) H 12/26/18 13:10 Neut # (Auto) 5.54 K/uL (1.4-6.5) 12/26/18 13:10 Lymph # (Auto) 1.71 K/uL (1.2-3.4) 12/26/18 13:10 Rowan # (Auto) 0.57 K/uL (0.11-0.59) 12/26/18 13:10 Eos # (Auto) 0.14 K/uL (0-0.5) 12/26/18 13:10 Baso # (Auto) 0.02 K/uL (0-0.2) 12/26/18 13:10 PT 10.1 Seconds (9.0-12.0) 12/26/18 13:10 INR 1.0 (0.9-1.1) 12/26/18 13:10 APTT 31.3 Seconds (21.0-31.0) H 12/26/18 13:10 PTT Ratio 1.2 12/26/18 13:10 POC Sodium 137 mEq/L (135-144) 01/21/19 09:59 Sodium 137 mmol/L (136-145) 01/22/19 06:40 POC Potassium 3.6 mEq/L (3.3-5.0) 01/21/19 09:59 Potassium 3.8 mmol/L (3.5-5.1) 01/22/19 06:40 POC Chloride 99 mEq/L (101-112) L 01/21/19 09:59 Chloride 106 mmol/L (98-107) 01/22/19 06:40 Carbon Dioxide 25 mmol/L (21-32) 01/22/19 06:40 POC Total CO2 25 mEq/l (24-31) 01/21/19 09:59 6.0 (3-11) 01/22/19 06:40 POC Anion Gap 16.0 mmol/L (16-25) 01/21/19 09:59 POC BUN 10 mg/dl (7-18) 01/21/19 09:59 BUN 13 mg/dl (7-18) 01/22/19 06:40 1.08 mg/dl (0.6-1.2) 01/22/19 06:40 POC Creatinine 0.9 mg/dl (0.6-1.3) 01/21/19 09:59 Est Cr Clr Drug Dosing 66.0 ml/min 01/22/19 06:40 Est GFR ( Amer) 66.5 01/22/19 06:40 Est GFR (Non-Af Amer) 57.3 01/22/19 06:40 11.7 (10-20) 01/22/19 06:40 Glucose 130 mg/dl (70-99) H 01/22/19 06:40 POC Glucose 132 (70-99) H 01/22/19 08:22 POC Glucose (other) 167 mg/dl (70-99) H 01/21/19 09:59 Estimat Average Glucose 154 mg/dl 12/26/18 13:10 7.0 % (4.5-5.6) H 12/26/18 13:10 Calcium 9.6 mg/dl (8.5-10.1) 01/22/19 06:40 POC Ioniz Calcium Phyllis 1.29 mmol/l (1.12-1.32) 01/21/19 09:59 4.0 gm/dl (3.4-5.0) 12/26/18 13:10 Yellow 12/26/18 13:10 Clear (Clear) 12/26/18 13:10 5.0 (4.5-7.5) 12/26/18 13:10 Ur Specific [place] 1.011 (1.000-1.030) 12/26/18 13:10 Negative (Negative) 12/26/18 13:10 Negative (Negative) 12/26/18 13:10 Negative (Negative) 12/26/18 13:10 Negative (Negative) 12/26/18 13:10 Negative (Negative) 12/26/18 13:10 Negative (Negative) 12/26/18 13:10 Negative (Negative) 12/26/18 13:10 Ur Leukocyte Esterase Negative (Negative) 12/26/18 13:10 Blood Type O Positive 01/21/19 08:27 Antibody Screen NEGATIVE 01/21/19 08:27 Crossmatch See Detail 01/21/19 08:27 Draw and Hold Cancelled 01/21/19 08:27
--- NOTE | 2019-01-22 10:32 | Anesthesiology Progress Note ---
Date of Service January 22, 2019 Anesthesia Post Procedure Vital Signs Vital Signs: Temp Pulse Pulse Resp BP Pulse Ox 01/22/19 07:20 36.7 C 89 16 120/79 96 01/22/19 03:44 36.8 C 91 H 16 122/76 97 01/21/19 23:11 36.4 C L 98 H 18 130/78 95 01/21/19 20:54 91 H 01/21/19 19:31 36.7 C 109 H 16 149/76 H 96 01/21/19 15:50 36.6 C 100 H 16 120/75 96 01/21/19 14:23 36.6 C 93 H 20 113/69 97 01/21/19 13:38 36.6 C 87 20 110/79 98 01/21/19 13:06 36.5 C 92 H 20 129/75 97 01/21/19 12:40 36.4 C L 91 H 16 124/77 95 01/21/19 12:20 90 13 124/71 96 01/21/19 12:10 36.6 C 89 14 115/71 95 01/21/19 12:00 87 16 114/70 96 01/21/19 11:50 87 14 121/66 100 01/21/19 11:40 88 15 106/70 98 01/21/19 11:30 36.0 C L 88 13 101/62 98 Pain Intensity Right Knee: Pain Intensity: 8 Notes Mental Status: alert / awake / arousable and participated in evaluation Nausea / Vomiting: adequately controlled Pain: adequately controlled Airway Patency, RR, SpO2: stable & adequate BP & HR: stable & adequate Hydration State: stable & adequate
[2019-01-22] MEDS: OXYCODONE HCL IR 5 MG TAB (IMMEDIATE RELEASE) PO PRN ×2 (13:14→19:47)
[2019-01-22] MEDS: SIMVASTATIN 10 MG TAB PO SCH (20:37)
[2019-01-22] MEDS: SENNA 8.6 MG TAB PO SCH (20:37)
[2019-01-22] MEDS: SERTRALINE HCL 50 MG TABLET PO SCH (20:38)
[2019-01-22] MEDS ORDERED: INSULIN DETEMIR FLEXPEN/FLEX TOUCH 100 UNITS/ML 3ML SQ SCH (21:00)
[2019-01-22] MEDS ORDERED: METFORMIN 500 MG PO SCH (21:00)
[2019-01-22] MEDS: ALPRAZolam 0.5 MG TABLET PO PRN (23:33)
[2019-01-23] MEDS: OXYCODONE HCL IR 5 MG TAB (IMMEDIATE RELEASE) PO PRN ×3 (04:29→13:55)
[2019-01-23 06:12] LABS: Basophils # (auto) 0.01 K/uL (0-0.2); Basophils % (auto) 0.1 %; Eosinophils # (auto) 0.17 K/uL (0-0.5); Eosinophils % (auto) 1.7 %; Hemoglobin 12.6 g/dL (12.0-16.0); Immature Granulocytes # (auto) 0.03 K/uL (0.00-0.02); Immature Granulocytes % (auto) 0.3 %; Lymphocytes # (auto) 3.34 K/uL (1.2-3.4); Mean Corpuscular Hgb Conc 34.1 g/dL (32-36); Mean Corpuscular Volume 87.1 fL (80-100); Mean Platelet Volume 8.4 fL (7.4-10.4); Monocytes # (auto) 0.56 K/uL (0.11-0.59); Monocytes % (auto) 5.5 %; Neutrophils # (auto) 6.01 K/uL (1.4-6.5); Neutrophils % (auto) 59.4 %; Platelet Count 272 K/uL (130-400); RDW Coefficient of Variation 13.9 % (11.5-14.5); RDW Standard Deviation 44.7 fL (36.4-46.3); Red Blood Count 4.25 M/uL (4.2-5.4); White Blood Count 10.12 K/uL (4.8-10.8)
[2019-01-23] MEDS: ACETAMINOPHEN 500 MG TAB PO SCH ×2 (06:18→13:55)
[2019-01-23 06:51] LABS: BUN Creatinine Ratio 16.8 (10-20); Calcium 9.7 mg/dl (8.5-10.1); Creatinine Clr Calc Pharmacy 62.5 ml/min; Est GFR (African American) 62.3; Est GFR (Non-African American) 53.7
--- NOTE | 2019-01-23 07:17 | Orthopedic Progress Note ---
Date of Service January 23, 2019 Assessment & Plan (1) Painful total knee replacement, right: POD #2 s/p right knee poly exchange PT OT protocols today. Weightbearing as tolerated. DVT prophylaxis with aspirin twice daily, ROBERTO Guzmán. Pain management-patient has history of chronic use of hydrocodone at home. Will add MS Contin twice daily. One-time dose of Toradol. Will adjust oxycodone as necessary. will d/c with it x 72 hours DC planning-patient planning for home with home health services. Subjective Postop day 2 status post right polyethylene bearing change status post TKA. denies Cp/sob denies fever/chills pain currently 09/28 Review of Systems Constitutional: no fever and no chills Physical Exam Physical Exam: Vital Signs Temp Pulse Resp BP Pulse Ox 01/22/19 23:23 37.1 C 88 16 145/79 H 96 01/22/19 15:35 36.5 C 89 16 128/79 95 01/22/19 11:29 36.3 C L 89 16 122/74 95 01/22/19 07:20 36.7 C 89 16 120/79 96 Intake and Output 01/22/19 01/23/19 01/23/19 22:59 06:59 14:59 Intake Total 450 / 1020 Balance 450 / 770 Intake: Oral 450 / 1020 Other: # Unmeasured Voi ds 1 Musculoskeletal: NVDI, calf SNT, negative joy sign. DP palpable, able to wiggle toes/ankle movement without difficulty. prevena wound vac dressing clean dry and intact. expected post-operative bruising noted. Results & Data Vital Signs (Past 12 Hours) Vital Signs Temp Pulse Resp BP Pulse Ox 01/22/19 23:23 37.1 C 88 16 145/79 H 96 Laboratory Results Laboratory Results WBC 10.12 K/uL (4.8-10.8) 01/23/19 05:57 RBC 4.25 M/uL (4.2-5.4) 01/23/19 05:57 Hgb 12.6 g/dL (12.0-16.0) 01/23/19 05:57 POC Hgb 12.6 g/dl (12.0-16.0) 01/21/19 09:59 Hct 37.0 % (37-47) 01/23/19 05:57 POC Hct 37 % (37-47) 01/21/19 09:59 MCV 87.1 fL (80-100) 01/23/19 05:57 MCH 29.6 pg (25-34) 01/23/19 05:57 MCHC 34.1 g/dL (32-36) 01/23/19 05:57 RDW Std Deviation 44.7 fL (36.4-46.3) 01/23/19 05:57 RDW Coeff of Rosa 13.9 % (11.5-14.5) 01/23/19 05:57 Plt Count 272 K/uL (130-400) 01/23/19 05:57 MPV 8.4 fL (7.4-10.4) 01/23/19 05:57 Immature Gran % (Auto) 0.3 % 01/23/19 05:57 Neut % (Auto) 59.4 % 01/23/19 05:57 Lymph % (Auto) 33.0 % 01/23/19 05:57 Curry % (Auto) 5.5 % 01/23/19 05:57 Eos % (Auto) 1.7 % 01/23/19 05:57 Baso % (Auto) 0.1 % 01/23/19 05:57 Immature Gran # (Auto) 0.03 K/uL (0.00-0.02) H 01/23/19 05:57 Neut # (Auto) 6.01 K/uL (1.4-6.5) 01/23/19 05:57 Lymph # (Auto) 3.34 K/uL (1.2-3.4) 01/23/19 05:57 Curry # (Auto) 0.56 K/uL (0.11-0.59) 01/23/19 05:57 Eos # (Auto) 0.17 K/uL (0-0.5) 01/23/19 05:57 Baso # (Auto) 0.01 K/uL (0-0.2) 01/23/19 05:57 PT 10.1 Seconds (9.0-12.0) 12/26/18 13:10 INR 1.0 (0.9-1.1) 12/26/18 13:10 APTT 31.3 Seconds (21.0-31.0) H 12/26/18 13:10 PTT Ratio 1.2 12/26/18 13:10 POC Sodium 137 mEq/L (135-144) 01/21/19 09:59 Sodium 137 mmol/L (136-145) 01/23/19 05:57 POC Potassium 3.6 mEq/L (3.3-5.0) 01/21/19 09:59 Potassium 4.0 mmol/L (3.5-5.1) 01/23/19 05:57 POC Chloride 99 mEq/L (101-112) L 01/21/19 09:59 Chloride 103 mmol/L (98-107) 01/23/19 05:57 Carbon Dioxide 26 mmol/L (21-32) 01/23/19 05:57 POC Total CO2 25 mEq/l (24-31) 01/21/19 09:59 Anion Gap 8.0 (3-11) 01/23/19 05:57 POC Anion Gap 16.0 mmol/L (16-25) 01/21/19 09:59 POC BUN 10 mg/dl (7-18) 01/21/19 09:59 BUN 19 mg/dl (7-18) H 01/23/19 05:57 Creatinine 1.14 mg/dl (0.6-1.2) 01/23/19 05:57 POC Creatinine 0.9 mg/dl (0.6-1.3) 01/21/19 09:59 Est Cr Clr Drug Dosing 62.5 ml/min 01/23/19 05:57 Est GFR ( Amer) 62.3 01/23/19 05:57 Est GFR (Non-Af Amer) 53.7 01/23/19 05:57 BUN/Creatinine Ratio 16.8 (10-20) 01/23/19 05:57 Glucose 117 mg/dl (70-99) H 01/23/19 05:57 POC Glucose 144 (70-99) H 01/22/19 21:35 POC Glucose (other) 167 mg/dl (70-99) H 01/21/19 09:59 Estimat Average Glucose 154 mg/dl 12/26/18 13:10 Hemoglobin A1c 7.0 % (4.5-5.6) H 12/26/18 13:10 Calcium 9.7 mg/dl (8.5-10.1) 01/23/19 05:57 POC Ioniz Calcium Phyllis 1.29 mmol/l (1.12-1.32) 01/21/19 09:59 Albumin 4.0 gm/dl (3.4-5.0) 12/26/18 13:10 Urine Color Yellow 12/26/18 13:10 Urine Appearance Clear (Clear) 12/26/18 13:10 Urine pH 5.0 (4.5-7.5) 12/26/18 13:10 Ur Specific [place] 1.011 (1.000-1.030) 12/26/18 13:10 Urine Protein Negative (Negative) 12/26/18 13:10 Urine Glucose (UA) Negative (Negative) 12/26/18 13:10 Urine Ketones Negative (Negative) 12/26/18 13:10 Urine Blood Negative (Negative) 12/26/18 13:10 Urine Nitrite Negative (Negative) 12/26/18 13:10 Urine Bilirubin Negative (Negative) 12/26/18 13:10 Urine Urobilinogen Negative (Negative) 12/26/18 13:10 Ur Leukocyte Esterase Negative (Negative) 12/26/18 13:10 Blood Type O Positive 01/21/19 08:27 Antibody Screen NEGATIVE 01/21/19 08:27 Crossmatch See Detail 01/21/19 08:27 Draw and Hold Cancelled 01/21/19 08:27 Diagnostic Findings RIGHT KNEE 2 VIEWS History: Right total knee arthroplasty. Degenerative arthritis. Postop. FINDINGS: The patient is status post a right total knee arthroplasty. The hardware is intact. No fracture or dislocation. Skin jerome are in place. IMPRESSION: Right total knee arthroplasty. No evidence for hardware complication.
[2019-01-23] MEDS: MIRABEGRON ER 25 MG TAB PO SCH (08:02)
[2019-01-23] MEDS: MoRPHine SULFATE CR 15 MG TABCR PO SCH (08:02)
[2019-01-23] MEDS: CYANOCOBALAMIN (VITAMIN B-12) 2,500 MCG TAB.SUBL SL SCH (08:03)
[2019-01-23] MEDS: MULTIVITAMIN TAB PO SCH (08:03)
[2019-01-23] MEDS: POTASSIUM CHLORIDE 10 MEQ TABCR PO SCH (08:03)
[2019-01-23] MEDS: AMLODIPINE BESYLATE 5 MG TAB PO SCH (08:03)
[2019-01-23] MEDS: VALSARTAN 80 MG TAB PO SCH (08:03)
[2019-01-23] MEDS: PANTOprazole 40 MG TAB PO SCH (08:03)
[2019-01-23] MEDS: DOCUSATE SODIUM 100 MG CAP PO SCH (08:03)
[2019-01-23] MEDS: ASPIRIN 81 MG ECTAB PO SCH (08:03)
[2019-01-23] MEDS: CHOLECALCIFEROL 1,000 UNITS TAB PO SCH (08:03)
[2019-01-23] MEDS: INSULIN ASPART 100 UNITS/ML 3 ML PEN SC SCH ×2 (09:00→12:52)
--- NOTE | 2019-01-28 02:06 | Discharge Summary ---
DISCHARGE DIAGNOSIS: Painful right total knee arthroplasty with loose polyethylene bearing. SECONDARY DIAGNOSES: Anxiety, both bowel and bladder incontinence, depression, diabetes mellitus type 2, GERD, glaucoma, hearing deficit, hyperlipidemia, hypertension, irritable bowel syndrome, osteoarthritis, peptic ulcer disease, sleep apnea, spinal stenosis. CONSULTATIONS: Rianna Serrano PA-C/Wong Kennedy MD COMPLICATIONS: None. PROCEDURES: Polyethylene bearing change with upsizing to a 2 x 13 poly on the right total knee by Dr. Tenorio on 01/21/2019. BRIEF HISTORY: As dictated in the history and physical. HOSPITAL SUMMARY: The patient was admitted on the above-noted date and had the above-noted surgery performed which she tolerated well. On the first postoperative day, the patient was complaining of pain that morning. She states that she tried taking the oxycodone, but only had 1 tablet the previous night which did not seem to help. By the morning she needed to use the IV Dilaudid. We discussed that she needed to take 2 pills initially with her history of using [place] at home. Down the road, we could be weaning her to 1 tablet if needed. She denies shortness of breath, chest pain, or lightheadedness. Denies calf pain. No other complaints. Dressings are clean, dry, and intact. Calves are soft and nontender. Neurovascularly intact. Toes are mobile and vital signs are stable. She is afebrile. She was started on PT and OT protocols, weightbearing as tolerated. Continue on DVT prophylaxis and pain management. With the patient's chronic history of use of hydrocodone at home, MS Contin was added as well as a one-time dose of Toradol. By her second postoperative day, she had no complaints. Pain was controlled. Vital signs were stable and she was afebrile. Neurovascularly intact. Calves were soft and nontender. Her Prevena wound VAC dressing was clean, dry and intact. Toes were mobile and hemoglobin was noted to be 12.6. She is to continue on her PT, OT protocols and DVT prophylaxis and pain management. Plan is for discharge to home with home health services. The rest of her stay was essentially uneventful and she was discharged to home on 01/23/2019. For further review, please see chart. LABORATORY AND X-RAY DATA: As per chart. DISCHARGE INSTRUCTIONS: The patient was discharged to home in satisfactory condition on 01/23/2019. DIET: Diabetic. ACTIVITY: Weightbearing as tolerated with a walker. Follow TK instruction sheets and special care instructions as noted and follow up with Dr. Lord in 2 weeks. The patient to call for appointment if one has not been made for you. DISCHARGE MEDICATIONS: Acetaminophen 1000 mg p.o. q. 8 hours, aspirin 81 mg p.o. b.i.d., cefadroxil 500 mg p.o. b.i.d., Colace 100 mg p.o. b.i.d., naloxone 2 mg IM q. 3 hours p.r.n., and oxycodone 5-10 mg p.o. q. 6 hours while awake. Resume home meds as listed. Previous aspirin dose, cinnamon bark, CoQ10, Hair, Skin and Nails with biotin, hydrocodone, melatonin, and turmeric.
== END 2019-01-23 16:39 | disposition home health service (06) | DRG 470 ==
LOC: ASU 08:03 → 3E 11:41
DX: I10 Essential (primary) hypertension; T84.032A Mechanical loosening of internal right knee prosthetic joint, initial encounter; E78.5 Hyperlipidemia, unspecified; D72.829 Elevated white blood cell count, unspecified; F32.9 Major depressive disorder, single episode, unspecified; Y83.1 Surgical operation with implant of artificial internal device as the cause of abnormal reaction of the patient, or of later complication, without mention of misadventure at the time of the procedure; E11.9 Type 2 diabetes mellitus without complications

== ENCOUNTER 2019-07-13 08:48 | Inpatient (IN) ==
--- NOTE | 2019-06-30 16:05 | PAT Medication Instructions ---
Medication Instructions Date of Service June 30, 2019 Home Medications Airborne (with lysine acetate) 4 tab PO QAM PRN 07/31/18 [History Confirmed 06/24/19] B-complex with vitamin C [Super B Complex-Vitamin C] 1 tab PO QAM Culturelle 1 cap PO QAM 07/31/18 [History Confirmed 06/24/19] Januvia 100 mg PO QAM 07/31/18 [History Confirmed 06/24/19] Levemir FlexTouch U-100 Insuln 40 unit SUBCUT HS 07/31/18 [History Confirmed 06/24/19] Praluent Pen See Rx Instructions .ROUTE .COMPLEX 07/31/18 [History Confirmed 06/24/19] Prilosec OTC 20 mg PO QAM 07/31/18 [History Confirmed 06/24/19] alprazolam 0.5 mg PO TID PRN 07/31/18 [History Confirmed 06/24/19] amlodipine 5 mg PO QAM 07/31/18 [History Confirmed 06/24/19] ascorbic acid (vitamin C) [Vitamin C] 1 tab PO QPM 07/31/18 [History Confirmed 06/24/19] cholecalciferol (vitamin D3) [Vitamin D3] 2,000 unit PO QAM 07/31/18 [History Confirmed 06/24/19] cyanocobalamin (vitamin B-12) [Vitamin B-12] 5,000 mcg SUBLINGUAL QAM meloxicam 7.5 mg PO BID 07/31/18 [History Confirmed 06/24/19] metformin [Glumetza] 500 mg PO PM 07/31/18 [History Confirmed 06/24/19] multivitamin 1 tab PO QAM 07/31/18 [History Confirmed 06/24/19] omega 1-ipj-qgw-fish oil [Fish Oil] 1 cap PO HS 07/31/18 [History Confirmed 06/24/19] potassium chloride [Klor-Con 10] 20 meq PO QAM 07/31/18 [History Confirmed 06/24/19] sertraline 50 mg PO HS 07/31/18 [History Confirmed 06/24/19] valsartan-hydrochlorothiazide 1 tab PO QAM 07/31/18 [History Confirmed 06/24/19] aspirin [Aspir-81] 81 mg PO QAM 06/24/19 [History Confirmed 06/24/19] cinnamon bark [Cinnamon] 1,000 mg PO BID 06/24/19 [History Confirmed 06/24/19] coQ10 (ubiquinol) 200 mg PO QAM 06/24/19 [History Confirmed 06/24/19] fluticasone propionate [Flonase Allergy Relief] 2 spray INTRANASAL DAILY PRN melatonin 1 mg PO HS PRN 06/24/19 [History Confirmed 06/24/19] ondansetron 4 mg PO Q8H PRN 06/24/19 [History Confirmed 06/24/19] tramadol 50 mg PO Q6H PRN 06/24/19 [History Confirmed 06/24/19] ASK your surgeon for instructions meloxicam 7.5 mg PO BID 07/31/18 [History Confirmed 06/24/19] ASK your prescriber and surgeon aspirin [Aspir-81] 81 mg PO QAM 06/24/19 [History Confirmed 06/24/19] Praluent Pen See Rx Instructions .ROUTE .COMPLEX 07/31/18 [History Confirmed 06/24/19] STOP taking 2 weeks before surgery (or as soon as possible if surgery is within 2 weeks) omega 3-kxn-lch-fish oil [Fish Oil] 1 cap PO HS 07/31/18 [History Confirmed 06/24/19] cinnamon bark [Cinnamon] 1,000 mg PO BID 06/24/19 [History Confirmed 06/24/19] coQ10 (ubiquinol) 200 mg PO QAM 06/24/19 [History Confirmed 06/24/19] DO NOT take the morning of surgery Airborne (with lysine acetate) 4 tab PO QAM PRN 07/31/18 [History Confirmed 06/24/19] B-complex with vitamin C [Super B Complex-Vitamin C] 1 tab PO QAM Culturelle 1 cap PO QAM 07/31/18 [History Confirmed 06/24/19] Januvia 100 mg PO QAM 07/31/18 [History Confirmed 06/24/19] ascorbic acid (vitamin C) [Vitamin C] 1 tab PO QPM 07/31/18 [History Confirmed 06/24/19] cholecalciferol (vitamin D3) [Vitamin D3] 2,000 unit PO QAM 07/31/18 [History Confirmed 06/24/19] cyanocobalamin (vitamin B-12) [Vitamin B-12] 5,000 mcg SUBLINGUAL QAM multivitamin 1 tab PO QAM 07/31/18 [History Confirmed 06/24/19] potassium chloride [Klor-Con 10] 20 meq PO QAM 07/31/18 [History Confirmed 06/24/19] valsartan-hydrochlorothiazide 1 tab PO QAM 07/31/18 [History Confirmed 06/24/19] Take morning of surgery With a small sip of water, OTHERWISE NOTHING TO EAT OR DRINK AFTER MIDNIGHT: Prilosec OTC 20 mg PO QAM 07/31/18 [History Confirmed 06/24/19] alprazolam 0.5 mg PO TID PRN (if needed) amlodipine 5 mg PO QAM 07/31/18 [History Confirmed 06/24/19] fluticasone propionate [Flonase Allergy Relief] 2 spray INTRANASAL DAILY PRN (if needed) ondansetron 4 mg PO Q8H PRN (if needed) tramadol 50 mg PO Q6H PRN (okay to take up to 4 hours prior to surgery if needed) Other Notes If you have any questions please call us at [phone] or [phone] or [phone] or [phone]
--- NOTE | 2019-07-01 11:12 | Anesthesiology Consultation ---
Date of Service July 01, 2019 Assessment & Plan (1) Encounter for pre-operative examination: - Awaiting review preop testing (labs). - Awaiting surgeon-ordered PCP preop evaluation scheduled 07/02 (Dr. Pulido/Alley). - S/P right knee polyexchange: 01/21/19: SAB x1 + PNB at [facility] - Check BSG AM DOS Chart Review Chart Review: Patient seen in Pre Admission Testing Teaching & Discussion Pre-Anesthesia Teaching/Discussion Notes: Instructed NPO after midnight before surgery,except medications with 15 cc of water. Medication instructions provided according to the PAT guidelines. History Surgery Operation Date: 07/15/19 10:30 Proposed Procedures p L4-L5 Transforaminal Lumbar Interbody Fusion, Spinal Cord Monitoring - Demetri Munguai DO Height/Weight Height: 5 ft 1 in Weight: 101.4 kg Allergies Allergy/AdvReac Type Severity Reaction Status Date / Time moxifloxacin Allergy Intermediate RASH, EARS Verified 06/24/19 11:03 SWELLED Ztwnhie-Rvn-Wbe Reductase AdvReac Severe MUSCLE Verified 06/24/19 11:04 Inhibitor SPASMS Medications Home Medications Medication Instructions Recorded Confirmed Last Taken Airborne (with lysine acetate) 4 tab PO QAM PRN 07/31/18 06/24/19 01/20/19 12:00 B-complex with vitamin C [Super B 1 tab PO QAM 07/31/18 06/24/19 01/20/19 12:00 Complex-Vitamin C] Culturelle 1 cap PO QAM 07/31/18 06/24/19 01/20/19 12:00 Januvia 100 mg PO QAM 07/31/18 06/24/19 01/20/19 12:00 Levemir FlexTouch U-100 Insuln 40 unit SUBCUT HS 07/31/18 06/24/19 01/20/19 21:00 Praluent Pen See Rx Instructions .ROUTE .COMPLEX 07/31/18 06/24/19 Unknown Prilosec OTC 20 mg PO QAM 07/31/18 06/24/19 01/21/19 05:00 alprazolam 0.5 mg PO TID PRN 07/31/18 06/24/19 01/21/19 05:00 amlodipine 5 mg PO QAM 07/31/18 06/24/19 01/21/19 05:00 ascorbic acid (vitamin C) [Vitamin 1 tab PO QPM 07/31/18 06/24/19 Unknown C] cholecalciferol (vitamin D3) 2,000 unit PO QAM 07/31/18 06/24/19 01/20/19 12:00 [Vitamin D3] cyanocobalamin (vitamin B-12) 5,000 mcg SUBLINGUAL QAM 07/31/18 06/24/19 01/19/19 12:00 [Vitamin B-12] meloxicam 7.5 mg PO BID 07/31/18 06/24/19 1 Week Ago ~01/14/19 metformin [Glumetza] 500 mg PO PM 07/31/18 06/24/19 01/18/19 19:00 multivitamin 1 tab PO QAM 07/31/18 06/24/19 01/20/19 12:00 omega 2-wgf-mne-fish oil [Fish Oil] 1 cap PO HS 07/31/18 06/24/19 2 Weeks Ago ~01/07/19 potassium chloride [Klor-Con 10] 20 meq PO QAM 07/31/18 06/24/19 01/20/19 12:00 sertraline 50 mg PO HS 07/31/18 06/24/19 01/20/19 21:00 valsartan-hydrochlorothiazide 1 tab PO QAM 07/31/18 06/24/19 01/20/19 12:00 aspirin [Aspir-81] 81 mg PO QAM 06/24/19 06/24/19 Unknown cinnamon bark [Cinnamon] 1,000 mg PO BID 06/24/19 06/24/19 Unknown coQ10 (ubiquinol) 200 mg PO QAM 06/24/19 06/24/19 Unknown fluticasone propionate [Flonase 2 spray INTRANASAL DAILY PRN 06/24/19 06/24/19 Unknown Allergy Relief] melatonin 1 mg PO HS PRN 06/24/19 06/24/19 Unknown ondansetron 4 mg PO Q8H PRN 06/24/19 06/24/19 Unknown tramadol 50 mg PO Q6H PRN 06/24/19 06/24/19 Unknown turmeric 1 tab PO DAILY 07/01/19 07/01/19 Unknown Past Medical History Medical History (Updated 07/01/19 @ 11:13 by Denisa Etienne) Anxiety Bladder incontinence occasional, chronic felt 2/2 remote back injury Bowel and bladder incontinence Bowel incontinence 2/2 IBS-D Depression Diabetes mellitus, type 2 IDDM GERD (gastroesophageal reflux disease) controlled Glaucoma "borderline" Hearing deficit Hx of bursitis right hip Hyperlipidemia Hypertension Hyponatremia hx (felt 2/2 to corticosteroid injection/subsequently resolved) Irritable bowel syndrome Osteoarthritis Peptic ulcer disease Sleep apnea could not tolerate CPAP Spondylolisthesis Exercise / Class Metabolic Activity III < 4 Walking/Shop/Light housework (walks unassisted for short distances 2/2 back pain, uses cane PRN long distances) Past Family History Family History Mother Family history of diabetes mellitus Father Family history of diabetes mellitus Brother Family history of diabetes mellitus Grandfather (Maternal) Family history of diabetes mellitus Grandmother (Maternal) Family history of diabetes mellitus Grandmother (Paternal) Family hx of colon cancer Past Surgical History Surgical History History of cholecystectomy History of colonoscopy Hx of arthroscopic knee surgery RIGHT X2, LEFT X1 Hx of hysterectomy Hx of knee surgery REVISION RIGHT REPLACEMENT Hx of total knee replacement RIGHT/LEFT Past Anesthesia History No Hx of Anesthesia Complications and No Family Hx of Anesthesia Complications History of PONV No Hx of Motion Sickness and History of PONV () Social History Smoking Status: Former smoker tobacco type: cigarettes Do You Dip or Chew Tobacco: No Smoking End Date: QUIT 5+ YRS AGO Hx Alcohol Use: Yes Alcohol type: hard liquor alcohol intake frequency: holidays/special occasions only Hx Substance Use: No substance use type: does not use Review of Systems Reflux controlled. Patient denies chest pain, shortness of breath, wheezing, palpitations. Physical Exam Vital Signs VITALS BP 134/83 P 85 TEMP 98.4 SP02 97%RA RESP 18 PHYSICAL Full neck and c-spine range of motion. Full TMJ range of motion. TMD 3.5 finger breaths Mallampati Score 3 Dentition: intact, upper front left implant, several crowns on sides/molars Lungs: clear throughout to auscultation Cardiac: regular rate and rhythm, no murmurs noted Spine: normal Carotid arteries: negative bruit Extremities: no edema Testing Electrocardiogram Date: 09/22/18 ST at 104bpm. Possible LAE. Chest X-Ray Date: 08/08/18 Cardiac mediastinal and hilar silhouettes are within normal limits. No pneumothorax, pleural effusion, focal airspace consolidation or overt pulmonary edema. Minimal linear atelectasis/scarring of the lingula. Bones of the chest appear grossly intact. 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 Cholecystectomy. No acute processes of the chest.
[2019-07-01 12:18] LABS: Appearance Urine Clear (Clear); Bacteria Urine Automated 4+ (Negative); Bilirubin Urine Negative (Negative); Blood Urine Negative (Negative); Cast Urine Automated 0 /lpf (0-5); Color Urine Yellow; Glucose Urine UA Negative (Negative); Ketones Urine Negative (Negative); Leukocyte Esterase Urine 2+ (Negative); Nitrite Urine Negative (Negative); Protein Urine Negative (Negative); RBC Urine Automated 0-4 /hpf (0-4); Specific Gravity Urine 1.007 (1.000-1.030); Urobilinogen Urine Negative (Negative)
[2019-07-01 12:26] LABS: INR 0.9 (0.9-1.1); Partial Thromboplastin Ratio 1.2; Partial Thromboplastin Time 31.3 Seconds (21.0-31.0); Prothrombin Time 9.5 Seconds (9.0-12.0)
[~2019-07-13 08:48] MED LIST changes: -BUPIVACAINE 0.5 % 5 MG/1 ML PF 10ML VIAL ONE; -FAMOTIDINE 20 MG TAB PO SCH; -GABAPENTIN 300 MG PO SCH; +GABAPENTIN 600 MG DOSE PO SCH; +HYDROmorphone INJ 2 MG/ML SYR/VIAL ONE; +LR 15ML/HR IV SCH; -LR 500ML BOLUS, THEN 15ML/HR IV SCH; -METOCLOPRAMIDE HCL 10 MG TABLET PO SCH; +MIDAZOLAM HCL 1 MG/ML 2ML VIAL ONE; -ROPIVACAINE 0.5% 5 MG/ML 30 ML VIAL ONE; -SCOPOLAMINE 1.5 MG TDSY TD SCH; -TRANEXAMIC ACID 1,000 MG **IV Intra-op IV SCH; -TRANEXAMIC ACID 1,000 MG **IV Pre-op IV SCH; -dexAMETHasone 4 MG TAB PO SCH; +fentaNYL citrate 100 MCG/2 ML VIAL ONE
--- NOTE | 2019-07-13 10:03 | History & Physical Bridge Note ---
Date of Service July 13, 2019 History & Physical Bridge Note I have examined the patient, reviewed the History & Physical and in the interval since the performance of the History & Physical I have noted the following changes of clinical significance: no changes noted
[2019-07-13] MEDS ORDERED: GLYCOPYRROLATE 0.2 MG/ML VIAL ONE (10:04)
[2019-07-13] MEDS ORDERED: NEOSTIGMINE METHYLSULFATE 1 MG/ML 10ML VIAL ONE (10:04)
[2019-07-13] MEDS ORDERED: LARYING-O-JET KIT (LTA) ONE (10:04)
[2019-07-13] MEDS ORDERED: ONDANSETRON INJ 2 MG/ML 2 ML VIAL ONE (10:04)
[2019-07-13] MEDS ORDERED: LIDOCAINE HCL 2% 2 ML VIAL/AMP(20MG/ML) INFIL ONE (10:04)
[2019-07-13] MEDS ORDERED: DEXAMETHASONE SOD INJ 4 MG/ML VIAL ONE (10:04)
[2019-07-13] MEDS ORDERED: ROCURONIUM BROMIDE 10 MG/ML 5 ML VIAL ONE (10:04)
[2019-07-13] MEDS ORDERED: HYDROmorphone INJ 2 MG/ML SYR/VIAL ONE (10:04)
[2019-07-13] MEDS ORDERED: PROPOFOL IV EMULSION 10 MG/ML 20 ML VIAL IV ONE (10:04)
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
[2019-07-13] MEDS ORDERED: BUPIVACAINE/EPINEPHRINE 0.25% 1:200,000 30 ML VIAL ONE (10:14)
[2019-07-13] MEDS ORDERED: BACITRACIN INJ 50,000 UNIT VIAL ONE (10:14)
[2019-07-13] MEDS ORDERED: SCOPOLAMINE 1.5 MG TDSY ONE (10:34)
[2019-07-13] MEDS ORDERED: ePHEDrine sulfate 50 MG/ML AMP IV PRN (10:38)
[2019-07-13] MEDS ORDERED: HYDROmorphone INJ 2 MG/ML SYR/VIAL IV PRN (10:38)
[2019-07-13] MEDS ORDERED: PROMETHAZINE HCL 12.5 MG in SODIUM CHLORIDE 0.9% 50 ML IV PRN ×2 (10:38→13:39)
[2019-07-13] MEDS ORDERED: ATROPINE SULFATE 0.1 MG/ML 10ML SYR IV PRN (10:38)
[2019-07-13] MEDS ORDERED: ONDANSETRON INJ 2 MG/ML 2 ML VIAL IV PRN ×2 (10:38→13:39)
[2019-07-13] MEDS ORDERED: fentaNYL citrate 100 MCG/2 ML VIAL ONE ×3 (11:04→11:56)
[2019-07-13] MEDS ORDERED: FLOSEAL HEMOSTATIC MATRIX 10ML TOP ONE (11:25)
[2019-07-13] MEDS ORDERED: PHENYLEPHRINE HCL 10 MG/ML VIAL ONE (11:46)
[2019-07-13] MEDS ORDERED: PHENYLEPHRINE 100MCG/ML 5ML SYR ONE (11:46)
--- NOTE | 2019-07-13 12:15 | Operative Report ---
Post Operative Report Pre & Post Diagnosis Operation Date: 07/13/19 10:35 Pre-Op Diagnosis: Lumbar spinal stenosis with neurogenic claudication. Spondylolisthesis L4-5. Post-Op Diagnosis Same I identified the patient and participated in the time-out.: Yes Procedure Operation Date: 07/13/19 10:35 Actual Procedures #1 lumbar decompression with bilateral medial facetectomy foraminotomy L3-4 L4-5 per #2 posterior spinal fusion L4-5 per #3 placed posterior instrumentation L4-5 per #4 interbody fusion L4-5 per #5 placement of peek cage 14 x 20 mm at L4-5 per #6 placement of locally harvested morselized autograft in the posterior lateral gutters. #7 placement infuse collagen sponge, mass graft in the posterior lateral gutters and ostial amp and interbody space. Surgeon Demetri Munguia, Tub Rider Megha Montoya Estimated Blood Loss 125 Findings See Below Patient is 5 foot 1 inches tall weighing over 100 kg with a BMI in excess of 41. The patient's body habitus did add significant technical difficulty requiring her deepest retractors and longer instruments in order to perform her procedure. This added at least 25% increase in operative time. Specimens None Indications This is a 59-year-old female who presents with above-mentioned diagnosis after failing extensive course of nonoperative care is here for surgical intervention. Description of Procedure Patient was met with identified and informed consent obtained. Patient was then taken to the operative suite underwent intubation placed in a prone position the Titus table on top of the Slava frame. All bony prominences well-padded eyes inspected to ensure no external pressure placed upon the peer at this point the lumbar spine was prepped and draped in a normal sterile fashion. Sharp dissection with the assistance of Bovie cautery was performed down to and exposing the lamina and transverse processes of L4 and L5 bilaterally. From caudal cephalad fashion complete laminectomy of L4 and partial laminectomy of L3 was performed including bilateral medial facetectomies and foraminotomies addressing severe stenosis. Pedicle screws were then placed in L4 and L5 bilaterally with assistance of fluoroscopy and the probably size jason placed. By way of a transforaminal approach on the right complete discectomy was performed endplates curetted to subcortical being bone and a 14 x 22 mm peek cage filled with ostium bone graft tapped in position. Rods then compressed locked in final position bilaterally. The transverse processes of L4 and L5 bur to subcortical being bone. Infuse collagen sponge mass graft and local autograft placed in the posterior lateral gutters. 15 round GIOVANNY drain inserted. The incision was then closed with 1 Vicryl in the fascia 2-0 Vicryl subcutaneously in 4 Monocryl skin closure. Steri-Strip sterile dressings placed. Patient will continue PACU stable disc. Please note spinal cord monitoring was utilized that the procedure no changes noted. Lastly Megha Montoya was present throughout the entire procedure involved the patient positioning complex portions of the surgery and final skin closure. I attest to the content of the Intraoperative Record and any orders documented therein. Any exceptions are noted below.
[2019-07-13] MEDS ORDERED: ESMOLOL HCL INJ 10 MG/ML 10ML VIAL IV ONE (12:30)
--- NOTE | 2019-07-13 12:40 | Fluoroscopy Report ---
FL lumbar spine 2-3V CLINICAL HISTORY: L4-L5 TRANSFORAMINAL LUMBAR INTERBODY FUSION COMPARISON STUDY: Lumbar spine MRI May 27, 2019. FLUOROSCOPY TIME: 15.7 seconds. FLUOROSCOPIC IMAGES: 2 FINDINGS: These images demonstrate L4-L5 discectomy with interbody spacer placement. Posterior decomp ression is noted. There are bilateral pedicle screws at the L4 and L5 levels with interconnecting jason s. IMPRESSION: Fluoroscopic images demonstrating L4-L5 discectomy, posterior decompression and bilatera l pedicle screw fusion. Electronically signed by: Aren Hare M.D. 07/13/2019 12:39 PM
[2019-07-13] MEDS: fentaNYL citrate 100 MCG/2 ML VIAL IV PRN ×2 (12:52→12:57)
--- NOTE | 2019-07-13 13:30 | Anesthesiology Progress Note ---
Date of Service July 13, 2019 Anesthesia Post Procedure Vital Signs Vital Signs: Temp Pulse Pulse Resp BP Pulse Ox 07/13/19 13:15 98 H 14 116/74 96 07/13/19 13:05 36.1 C L 101 H 14 127/69 95 07/13/19 12:55 100 H 15 129/76 99 07/13/19 12:45 98 H 12 124/71 99 07/13/19 12:35 98 H 12 122/84 100 07/13/19 12:28 36.6 C 105 H 13 132/83 99 07/13/19 09:13 36.7 C 97 H 18 131/65 94 Pain Intensity Lower Medial Back: Pain Intensity: 4 Transfer of Care Handoff Completed per policy Notes Mental Status: alert / awake / arousable and participated in evaluation Patient Amnestic to Procedure: Yes Nausea / Vomiting: adequately controlled Pain: adequately controlled Airway Patency, RR, SpO2: stable & adequate BP & HR: stable & adequate Hydration State: stable & adequate Anesthetic Complications: no major complications apparent and Pt Satisfied with anesthetic care
[2019-07-13] MEDS ORDERED: ONDANSETRON HOME PACK 4MG OD TAB PO PRN (13:39)
[2019-07-13] MEDS ORDERED: ONDANSETRON 4 MG OD TAB PO PRN (13:39)
[2019-07-13] MEDS ORDERED: LORazepam 0.5 MG/1 ML VIAL IV PRN (13:39)
[2019-07-13] MEDS ORDERED: METOCLOPRAMIDE HCL INJ 5 MG/ML 2 ML VIAL IV PRN (13:39)
[2019-07-13] MEDS ORDERED: ALPRAZolam 0.5 MG TABLET PO PRN (13:39)
[2019-07-13] MEDS ORDERED: NALOXONE HCL 0.4 MG/1 ML VIAL/CARP IV PRN (13:39)
[2019-07-13] MEDS ORDERED: NON-FORMULARY MEDICATION (Melatonin 1 MG) PO PRN (13:39)
[2019-07-13] MEDS ORDERED: ACETAMINOPHEN 500 MG TAB PO PRN (13:39)
[2019-07-13] MEDS ORDERED: SOD PHOSPHATE/SOD BIPHOSPHATE ENEMA 132 ML BTL PR PRN (13:39)
[2019-07-13] MEDS ORDERED: HYDROmorphone INJ 0.5 MG/0.5 ML SYR IV PRN ×2 (13:39→14:00)
[2019-07-13] MEDS ORDERED: MAGNESIUM HYDROXIDE SUSP 30 ML UDC PO PRN (13:39)
[2019-07-13] MEDS ORDERED: ALUMINUM/MAGNESIUM SUSP 30 ML UDC PO PRN (13:39)
[2019-07-13] MEDS ORDERED: LORazepam 0.5 MG TAB PO PRN (13:39)
[2019-07-13] MEDS ORDERED: HYDROmorphone INJ 1 MG/ML SYRINGE IV PRN (13:39)
[2019-07-13] MEDS ORDERED: ACETAMINOPHEN 1,000 MG/100 ML VIAL IV PRN (13:39)
[2019-07-13] MEDS ORDERED: FLUTICASONE PROPIONATE NA SPR 16 GM BTL PRN (13:39)
[2019-07-13] MEDS ORDERED: TRAMADOL HCL 50 MG TABLET PO PRN (13:39)
[2019-07-13] MEDS ORDERED: DO NOT ADMINISTER PNEUMOCOCCAL VACCINE PRN (13:39)
[2019-07-13] MEDS ORDERED: DO NOT ADMINISTER FLU VACCINE PRN (13:39)
[2019-07-13] MEDS ORDERED: FAMOTIDINE 20 MG TAB PO PRN (13:39)
[2019-07-13] MEDS ORDERED: BISACODYL 10 MG SUPP PR PRN (13:39)
--- NOTE | 2019-07-13 14:20 | Hospitalist Consultation ---
Date of Consultation July 13, 2019 Assessment & Plan (1) S/P spinal surgery: This is a 59yo F with a PMH of HTN, HLD, DM II, MARIANELA on CPAP, mood disorder and other medical problems listed below who is POD #0 s/p decompression and fusion L3-L5 with posterior instrumentation by Dr. Munguia. -POD #0 s/p decompression and fusion L3-L5 with posterior instrumentation by Dr. Munguia -Pt is doing well post-operatively -Per ortho for pain control, wound care, anticoagulation and activities -Monitor H&H (EBL: 125ml, GIOVANNY drain output: 55ml) -Continue incentive spirometry, PT/OT when appropriate (2) Diabetes mellitus, type 2: A1c of 7.0 in May -Hold home agents -Basal bolus insulin while in-patient -BSG AC HS (3) Hypertension: Normotensive -Continue amlodipine, valsartan in AM -Holding hctz for now- reassess volume status in AM (4) Depression: Continue Zoloft PCP: Dr. Pulido ([facility]) Dispo: Per primary service Patient seen in collaboration with Dr. Zhang. Please see addendum. Supervising Physician Co-Signing Physician Notes ROS-No Headache, No Visual Changes, No Nausea, No Vomiting, No Fever, No Chills, No Neck Pain or Stiffness, No Chest Pain, No Palpitations, No SOB, No GOULD, No Cough, No Sputum, No Wheezing, No Abdominal Pain, No Diarrhea, No Hematemesis, No Hemoptysis, No Unexpected Weight Loss, No Flank pain, No Melena, No Hematochezia, No Frequency, No Urgency, No Burning, No Hematuria, No Rashes, No Diaphoresis. Appetite is Normal, back Sore Physical Exam Gen-AAO x 3, NAD, Afebrile, obese Head-NCAT, EOMI, PERRLA, Anicteric Sclera, No Posterior Pharyngeal Erythema Neck-Supple, No JVD, No Thyromegaly, No Masses, No LAD, No Bruits Lungs-Clear to Auscultation Bilaterally, No Rales, No Rhonchi, No Wheezing, No Crepitus Chest-No S4, +S1, +S2, No S3, No Murmurs, No Rubs, No Gallops, No Ectopy Abdomen-Soft, Bowel Sounds Present, Non Tender, Non Distended, No Hepatomegaly, No Splenomegaly, No Palpable Masses, No Rebound, No Rigidity, No Guarding Musculoskeletal-Full Range of Motion Bilaterally, No CVAT Extremities-No Cyanosis, No Clubbing, No Edema Nuero-Cranial Nerves II-XII grossly intact, Motor WNL, DTRs WNL, Strength WNL, Non Focal Psych-Normal Mood History of Present Illness Reason for Consultation: post op med mgmt Attending Physician: Demetri Munguia, DO History of Present Illness This is a 59yo F with a PMH of HTN, HLD, DM II, MARIANELA on CPAP, mood disorder and other medical problems listed below who is POD #0 s/p decompression and fusion L3-L5 with posterior instrumentation by Dr. Munguia. Patient is feeling well post operatively with minimal surgical site discomfort. Denies any pain or paresthesias to bilateral lower extremities. No fever, chills, lightheadedness. visual changes, chest pain, SOB, nausea, vomiting, abdominal pain, dysuria, diarrhea or constipation. Last bowel movement was yesterday. Was instructed to take 20u of pre-op Levemir this morning. Has chronic intermittent bowel and bladder incontinence. Allergies Allergy/AdvReac Type Severity Reaction Status Date / Time moxifloxacin Allergy Intermediate RASH, EARS Verified 07/13/19 09:19 SWELLED Xgiggfn-Kda-Zns Reductase AdvReac Severe MUSCLE Verified 07/13/19 09:19 Inhibitor SPASMS Home Medications Home Medications Medication Instructions Recorded Confirmed Type Airborne (with lysine acetate) 4 tab PO QAM PRN 07/31/18 07/13/19 History B-complex with vitamin C [Super B 1 tab PO QAM 07/31/18 07/13/19 History Complex-Vitamin C] Culturelle 1 cap PO QAM 07/31/18 07/13/19 History Januvia 100 mg PO QAM 07/31/18 07/13/19 History Levemir FlexTouch U-100 Insuln 40 unit SUBCUT HS 07/31/18 07/13/19 History Praluent Pen See Rx Instructions .ROUTE .COMPLEX 07/31/18 07/13/19 History Prilosec OTC 20 mg PO QAM 07/31/18 07/13/19 History alprazolam 0.5 mg PO TID PRN 07/31/18 07/13/19 History amlodipine 5 mg PO QAM 07/31/18 07/13/19 History ascorbic acid (vitamin C) [Vitamin 1 tab PO QPM 07/31/18 07/13/19 History C] cholecalciferol (vitamin D3) 2,000 unit PO QAM 07/31/18 07/13/19 History [Vitamin D3] cyanocobalamin (vitamin B-12) 5,000 mcg SUBLINGUAL QAM 07/31/18 07/13/19 History [Vitamin B-12] meloxicam 7.5 mg PO BID 07/31/18 07/13/19 History metformin [Glumetza] 500 mg PO PM 07/31/18 07/13/19 History multivitamin 1 tab PO QAM 07/31/18 07/13/19 History omega 8-sfx-aea-fish oil [Fish Oil] 1 cap PO HS 07/31/18 07/13/19 History potassium chloride [Klor-Con 10] 20 meq PO QAM 07/31/18 07/13/19 History sertraline 50 mg PO HS 07/31/18 07/13/19 History valsartan-hydrochlorothiazide 1 tab PO QAM 07/31/18 07/13/19 History aspirin [Aspir-81] 81 mg PO QAM 06/24/19 07/13/19 History cinnamon bark [Cinnamon] 1,000 mg PO BID 06/24/19 07/13/19 History coQ10 (ubiquinol) 200 mg PO QAM 06/24/19 07/13/19 History fluticasone propionate [Flonase 2 spray INTRANASAL DAILY PRN 06/24/19 07/13/19 History Allergy Relief] melatonin 1 mg PO HS PRN 06/24/19 07/13/19 History ondansetron 4 mg PO Q8H PRN 06/24/19 07/13/19 History tramadol 50 mg PO Q4H PRN 06/24/19 07/13/19 History turmeric 1 tab PO DAILY 07/01/19 07/13/19 History oxycodone 5 mg PO Q6H PRN #30 tab 07/13/19 Rx tramadol 50 mg PO Q6H PRN #30 tab 07/13/19 Rx Patient History Medical History Anxiety Bladder incontinence occasional, chronic felt 2/2 remote back injury Bowel and bladder incontinence Bowel incontinence 2/2 IBS-D Depression Diabetes mellitus, type 2 IDDM GERD (gastroesophageal reflux disease) controlled Glaucoma "borderline" Hearing deficit Hx of bursitis right hip Hyperlipidemia Hypertension Hyponatremia hx (felt 2/2 to corticosteroid injection/subsequently resolved) Irritable bowel syndrome Osteoarthritis Peptic ulcer disease Sleep apnea could not tolerate CPAP Spondylolisthesis Surgical History History of cholecystectomy History of colonoscopy Hx of arthroscopic knee surgery RIGHT X2, LEFT X1 Hx of hysterectomy Hx of knee surgery REVISION RIGHT REPLACEMENT Hx of total knee replacement RIGHT/LEFT Family History Mother Family history of diabetes mellitus Father Family history of diabetes mellitus Brother Family history of diabetes mellitus Grandfather (Maternal) Family history of diabetes mellitus Grandmother (Maternal) Family history of diabetes mellitus Grandmother (Paternal) Family hx of colon cancer Social History Preferred Language: Macedonian Communication Ability: Effective Ore Crusher Required: No Beliefs That Will Affect Care: None marital status: Current Living Situation: Spouse Other Information That Helps Us Care for You: No Feels Safe at Home: No Is there a partner from a previous relationship who is making you feel unsafe now?: No Any Concerns about Your Family Situation: Yes (SPOUSE HAS HIT PT IN THE PAST/"MARITAL ISSUES"PER PT) Would You Like to Speak to Someone About Your Situation: No (PT GOES TO [facility] CURRENTLY) Smoking Status: Former smoker Tobacco Type: cigarettes ; Do You Dip or Chew Tobacco: No ; Smoking End Date: QUIT 5+ YRS AGO ; Second Hand Exposure: No ; Hx Alcohol Use: Yes Alcohol type: hard liquor Alcohol Intake Frequency: Holidays/Special Occasions Hx Substance Use: No Review of Systems Review of Systems: At least ten systems reviewed and negative except as noted in the HPI. Physical Exam Physical Exam: General Appearance: WD/WN, vitals as above, NAD, lying in bed, pleasant, conversing easily, morbidly obese Head: normocephalic, atraumatic Eyes: normal inspection, PERRL, conjunctivae normal, anicteric sclerae ENT: external ear and nose normal, oropharynx normal Neck: trachea midline, no thyromegaly normal visual inspection Respiratory: normal respiratory effort, lungs clear to auscultation, no wheeze, rales, rhonchi. Normal insp/exp effort, no accessory muscle use Cardiovascular: regular rate, rhythm, no murmur, normal peripheral pulses. Vessels: no JVD or carotid bruit Chest: normal inspection of chest Abdomen/GI: normal bowel sounds, soft, nontender, no hepatosplenomegaly Extremities/Musculoskelatal: +Lumbosacral surgical dressing clean, dry, intact. GIOVANNY drain with sanguineous output. No cyanosis or clubbing, extremities motor strength 5/5 Neurologic: PERRL, EOMI, CN's II-XI intact bilaterally and moves all extremities Psychiatric: A+Ox3, euthymic affect Skin: no rashes, normal color, warm/dry Results & Data Vital Signs (Past 12 Hours) Vital Signs Temp Pulse Pulse Resp BP Pulse Ox 07/13/19 14:07 93 H 15 134/81 99 07/13/19 13:45 36.7 C 97 H 14 119/79 98 07/13/19 13:15 98 H 14 116/74 96 07/13/19 13:05 36.1 C L 101 H 14 127/69 95 07/13/19 12:55 100 H 15 129/76 99 07/13/19 12:45 98 H 12 124/71 99 07/13/19 12:35 98 H 12 122/84 100 07/13/19 12:28 36.6 C 105 H 13 132/83 99 07/13/19 09:13 36.7 C 97 H 18 131/65 94 Laboratory Results
[2019-07-13] MEDS ORDERED: DEXTROSE 50% 50 ML SYRINGE IV PRN (14:35)
[2019-07-13] MEDS ORDERED: GLUCOSE 40% GEL 15 GM TUBE PO PRN (14:35)
[2019-07-13] MEDS ORDERED: GLUCOSE 10 TABS/TUBE PO PRN (14:35)
[2019-07-13] MEDS ORDERED: CARBOHYDRATES FOR HYPOGLYCEMIA PO PRN (14:35)
[2019-07-13] MEDS ORDERED: GLUCAGON FOR INJ 1 MG VIAL SQ PRN (14:35)
[2019-07-13] MEDS: OXYCODONE HCL IR 5 MG TAB (IMMEDIATE RELEASE) PO PRN ×2 (16:11→21:24)
[2019-07-13] MEDS: INSULIN ASPART 100 UNITS/ML 3 ML PEN SC SCH ×3 (17:00→21:39)
[2019-07-13] MEDS ORDERED: NURSING DECISION MEDICATION ONE (17:24)
[2019-07-13] MEDS ORDERED: COUGH DROP (SUGAR FREE) LOZ 24 LOZ/1 BOX BUCCAL PRN (17:34)
[2019-07-13] MEDS: CEFAZOLIN 2000MG 2,000 MG/15 ML SYR IV SCH (17:56)
[2019-07-13] MEDS: SODIUM CHLORIDE 0.9% 1000ML 1,000 ML IV SCH (18:02)
[2019-07-13] MEDS ORDERED: INSULIN GLARGINE SOLOSTAR 100 UNITS/ML 3 ML PEN SC SCH (21:00)
[2019-07-13] MEDS: DOCUSATE SODIUM/SENNA 50/8.6MG TAB PO SCH (21:25)
[2019-07-13] MEDS: SERTRALINE HCL 50 MG TABLET PO SCH (21:25)
[2019-07-13] MEDS: OMEGA-3 (PURIFIED FISH OIL) 1 GM CAP PO SCH (21:25)
[2019-07-13] MEDS: ASCORBIC ACID 500 MG TAB PO SCH (21:26)
[2019-07-14] MEDS: CEFAZOLIN 2000MG 2,000 MG/15 ML SYR IV SCH (02:08)
[2019-07-14] MEDS: SODIUM CHLORIDE 0.9% 1000ML 1,000 ML IV SCH (03:48)
[2019-07-14] MEDS: OXYCODONE HCL IR 5 MG TAB (IMMEDIATE RELEASE) PO PRN ×4 (03:50→21:03)
[2019-07-14] MEDS: POLYETHYLENE (MIRALAX) 17 GM PACK PO SCH ×4 (05:23→23:20)
[2019-07-14 06:35] LABS: Eosinophils # (auto) 0.02 K/uL (0-0.5); Eosinophils % (auto) 0.2 %; Hematocrit (blood only) 31.7 % (37-47); Hemoglobin 11.1 g/dL (12.0-16.0); Immature Granulocytes # (auto) 0.02 K/uL (0.00-0.02); Immature Granulocytes % (auto) 0.2 %; Lymphocytes # (auto) 1.74 K/uL (1.2-3.4); Lymphocytes % (auto) 15.9 %; Mean Corpuscular Hemoglobin 30.3 pg (25-34); Mean Corpuscular Volume 86.6 fL (80-100); Mean Platelet Volume 8.3 fL (7.4-10.4); Monocytes # (auto) 0.67 K/uL (0.11-0.59); Monocytes % (auto) 6.1 %; Neutrophils # (auto) 8.49 K/uL (1.4-6.5); Neutrophils % (auto) 77.6 %; Platelet Count 252 K/uL (130-400); RDW Coefficient of Variation 12.9 % (11.5-14.5); RDW Standard Deviation 40.8 fL (36.4-46.3); Red Blood Count 3.66 M/uL (4.2-5.4); White Blood Count 10.94 K/uL (4.8-10.8)
[2019-07-14 07:10] LABS: BUN Creatinine Ratio 13.9 (10-20); Calcium 9.4 mg/dl (8.5-10.1); Creatinine Clr Calc Pharmacy 76.8 ml/min; Est GFR (African American) 84.5; Est GFR (Non-African American) 72.9; Potassium 3.5 mmol/L (3.5-5.1)
[2019-07-14 07:48] LABS: Estimated Average Glucose 131 mg/dl; Hemoglobin A1C 6.2 % (4.5-5.6)
--- NOTE | 2019-07-14 08:05 | Anesthesiology Progress Note ---
Date of Service July 14, 2019 Anesthesia Post Procedure Vital Signs Vital Signs: Temp Pulse Pulse Pulse Resp BP BP 07/14/19 03:07 36.4 C L 95 H 16 114/67 07/13/19 23:00 36.6 C 97 H 16 111/67 07/13/19 19:06 36.6 C 95 H 18 149/80 H 07/13/19 16:47 36.6 C 92 H 17 126/78 07/13/19 15:56 36.5 C 101 H 17 124/75 07/13/19 14:33 98 H 16 130/80 07/13/19 14:07 93 H 15 134/81 07/13/19 13:45 36.7 C 97 H 14 119/79 07/13/19 13:15 98 H 14 116/74 07/13/19 13:05 36.1 C L 101 H 14 127/69 07/13/19 12:55 100 H 15 129/76 07/13/19 12:45 98 H 12 124/71 07/13/19 12:35 98 H 12 122/84 07/13/19 12:28 36.6 C 105 H 13 132/83 07/13/19 09:13 36.7 C 97 H 18 131/65 Pulse Ox 07/14/19 03:07 96 07/13/19 23:00 94 07/13/19 19:06 98 07/13/19 16:47 97 07/13/19 15:56 96 07/13/19 14:33 98 07/13/19 14:07 99 07/13/19 13:45 98 07/13/19 13:15 96 07/13/19 13:05 95 07/13/19 12:55 99 07/13/19 12:45 99 07/13/19 12:35 100 07/13/19 12:28 99 07/13/19 09:13 94 Pain Intensity Lower Medial Back: Pain Intensity: 4 Notes Mental Status: alert / awake / arousable and participated in evaluation Patient Amnestic to Procedure: Yes Nausea / Vomiting: adequately controlled Pain: adequately controlled Airway Patency, RR, SpO2: stable & adequate BP & HR: stable & adequate Hydration State: stable & adequate Anesthetic Complications: no major complications apparent and Pt Satisfied with anesthetic care
--- NOTE | 2019-07-14 08:42 | Hospitalist Progress Note ---
Date of Service July 14, 2019 Assessment & Plan (1) S/P spinal surgery: This is a 59yo F with a PMH of HTN, HLD, DM II, MARIANELA on CPAP, mood disorder and other medical problems listed below who is: POD #1 s/p decompression and fusion L3-L5 with posterior instrumentation by Dr. Munguia. doing well post operatively EBL: 125ml; GIOVANNY drain output: 200ml pain/wound management per ortho activity and therapy as directed by ortho encourage incentive spirometry H&H stable (2) Diabetes mellitus, type 2: A1c of 7.0 in December, 6.2 today Hold home agents Lantus/Novolog per protocol BSG AC HS BSG 130 this a.m. (3) Anemia: H&H stable at 11.1 and 31.7 Previous hemoglobin 12.6 and 37.0 (4) Leukocytosis: WBC 10.9k No signs or symptoms of infection likely in setting of Postop state and dexamethasone administration (5) Hyponatremia: NA 132 likely dilutional given IVF asymptomatic, off IVF repeat in a.m (6) Hypertension: BP controlled 122/75 Continue amlodipine, valsartan in AM resume HCTZ in a.m. (7) Depression: mood stable Continue Zoloft PCP: Dr[facility] Pulido ([facility]) Dispo: Per primary service Patient seen and examined in collaboration with Dr. Santizo, please see addendum Thank you for this consultation. We will follow the patient with you during their hospital stay. You can reach a member of [facility] via pager @ [phone]. Supervising Physician Co-Signing Physician Notes Attending addendum: The patient was seen and examined in medical floor She is status post term spinal fusion and decompression Has been getting physical therapy without much pain in the back Denies any acute symptoms On examination Obese, sitting on a chair without any acute symptoms Hemodynamically stable Chest-clear to auscultate bilaterally Heart-S1-S2, regular Abdomen-benign Extremities-trace edema bilaterally Her labs and imaging studies reviewed Medically stable Agree with assessment and plan as outlined above by PATTIE Lance DR Subjective Patient seen and examined in room 322-1. Follow-up lumbar decompression fusion POD #1 daily. Expresses no concerns or complaints this morning. Currently sitting up bedside with mild incisional discomfort. "I can actually feel my feet again." She states she was up and ambulating in the bathroom multiple times throughout the night secondary to having to urinate." Scopolamine patch has really helped her nausea. Denies fever, chills, sweats, lightheadedness, dizziness, chest pain, shortness of breath, palpitations, nausea, vomiting, abdominal pain. Review of Systems Review of Systems: All systems reviewed & are unremarkable except as noted in HPI & below Physical Exam Physical Exam: Gen: WD/WN, female, sitting up at bedside, NAD, A&O x3 HEENT: Normocephalic, atraumatic, conjunctivae moist, sclerae anicteric, mucous membranes moist. Lung: Clear to Auscultation bilaterally, no wheezes/rales/rhonchi Heart: Regular rate, regular rhythm, no murmurs, rubs, or gallops Abdomen: Obese abdomen, soft, NT, ND +BS x 4 Extremities: No edema, obese lower extremity, bilateral pedal pulse +2 Skin: Warm, no rash, negative turgor. Lumbar dressing CDI, GIOVANNY drain with serosanguineous drainage Results & Data Vital Signs (Past 12 Hours) Vital Signs Temp Pulse Pulse Resp BP BP Pulse Ox 07/14/19 08:00 36.7 C 90 16 122/75 97 07/14/19 03:07 36.4 C L 95 H 16 114/67 96 07/13/19 23:00 36.6 C 97 H 16 111/67 94 Laboratory Results Short CBC 07/14/19 Range/Units 06:11 WBC 10.94 H (4.8-10.8) K/uL Hgb 11.1 L (12.0-16.0) g/dL Hct 31.7 L (37-47) % Plt Count 252 (130-400) K/uL BMP 07/14/19 06:11 Sodium 132 L Potassium 3.5 Chloride 101 Carbon Dioxide 23 BUN 12 Creatinine 0.88 Glucose 123 H Calcium 9.4 Medications Administered Ascorbic Acid (Vitamin C) 500 mg PO QPM MARCELLO Stop: 08/12/19 20:59 Last Admin: 07/13/19 21:26 Dose: 500 mg Documented by: [id number] Fish Oil (Jasper-3 (Purified Fish Oil)) 1 gm PO HS MARCELLO Stop: 08/12/19 20:59 Last Admin: 07/13/19 21:25 Dose: 1 gm Documented by: [id number] Insulin Aspart (Novolog Flexpen) 0 units SC ACHS MARCELLO Stop: 08/12/19 14:39 Last Admin: 07/13/19 21:39 Dose: 7 units Documented by: [id number] Cosigned by: [id number] Admin: 07/13/19 17:55 Dose: 10 units Documented by: [id number] Cosigned by: [id number] Admin: 07/13/19 17:00 Dose: Not Given Documented by: [id number] Cosigned by: [id number] Insulin Glargine (Lantus Solostar Pen) 0 - 40 units SC BID MARCELLO; Protocol Stop: 08/12/19 20:59 Last Admin: 07/13/19 21:32 Dose: 40 units Documented by: [id number] Cosigned by: [id number] Menthol (Nice) 1 guru BUCCAL Q1H PRN PRN Reason: Cough Stop: 08/12/19 17:33 Last Admin: 07/13/19 18:02 Dose: 1 guru Documented by: [id number] Oxycodone HCl (Roxicodone Immediate Rel) 5 - 10 mg PO Q4H PRN PRN Reason: Moderate-Severe Pain Stop: 07/27/19 13:38 Last Admin: 07/14/19 03:50 Dose: 10 mg Documented by: [id number] Admin: 07/13/19 21:24 Dose: 10 mg Documented by: [id number] Admin: 07/13/19 16:11 Dose: 10 mg Documented by: [id number] Polyethylene Glycol (Miralax Powder Packet) 17 gm PO Q6 MARCELLO Stop: 08/13/19 05:59 Last Admin: 07/14/19 05:23 Dose: 17 gm Documented by: [id number] Senna/Docusate Sodium (Senokot S) 2 tab PO HS MARCELLO Stop: 08/12/19 20:59 Last Admin: 07/13/19 21:25 Dose: 2 tab Documented by: [id number] Sertraline HCl (Zoloft) 50 mg PO HS MARCELLO Stop: 08/12/19 20:59 Last Admin: 07/13/19 21:25 Dose: 50 mg Documented by: [id number] Discontinued Medications Acetaminophen (Tylenol) 1,000 mg PO PREOP MARCELLO Stop: 07/13/19 18:00 Last Admin: 07/13/19 09:32 Dose: 1,000 mg Documented by: [id number] Bacitracin (Bacitracin) Confirm Administered Dose 50,000 units .ROUTE .STK-MED ONE Stop: 07/13/19 10:15 Last Admin: 07/13/19 11:04 Dose: 50,000 units Documented by: [id number] Bupivacaine HCl/Epinephrine Bitart (Bupivacaine 0.25%-Epi [id number]) Confirm Administered Dose 30 ml .ROUTE .STK-MED ONE Stop: 07/13/19 10:15 Last Admin: 07/13/19 11:05 Dose: 20 ml Documented by: [id number] Celecoxib (Celebrex) 200 mg PO PREOP MARCELLO Stop: 07/13/19 18:00 Last Admin: 07/13/19 09:32 Dose: 200 mg Documented by: [id number] Fentanyl Citrate (Fentanyl Citrate) 50 mcg IV Q5M PRN PRN Reason: PACU Use Only-Pain Stop: 07/13/19 15:38 Last Admin: 07/13/19 12:57 Dose: 50 mcg Documented by: [id number] Admin: 07/13/19 12:52 Dose: 50 mcg Documented by: [id number] Gabapentin (Neurontin) 600 mg PO PREOP MARCELLO Stop: 07/13/19 18:00 Last Admin: 07/13/19 09:31 Dose: 600 mg Documented by: [id number] Lactated Ringer's (Lr) 1,000 mls @ 15 mls/hr IV .Q24H MARCELLO Stop: 07/14/19 05:59 Last Infusion: 07/13/19 10:40 Dose: 0 mls/hr Documented by: [id number] Admin: 07/13/19 09:41 Dose: 15 mls/hr Documented by: [id number] Cefazolin Sodium (Ancef 2000mg) 2,000 mg in 15 mls @ 3.75 mls/min IV PREOP MARCELLO; Protocol Stop: 07/13/19 18:00 Last Admin: 07/13/19 10:40 Dose: 3.75 mls/min Documented by: [id number] Cefazolin Sodium (Ancef 2000mg) 2,000 mg in 15 mls @ 3.75 mls/min IV Q8H MARCELLO; Protocol Stop: 07/14/19 02:03 Last Admin: 07/14/19 02:08 Dose: 3.75 mls/min Documented by: [id number] Admin: 07/13/19 17:56 Dose: 3.75 mls/min Documented by: [id number] Sodium Chloride (Nss 1000ml) 1,000 mls @ 100 mls/hr IV .Q10H MARCELLO Stop: 08/12/19 13:38 Last Admin: 07/14/19 03:48 Dose: Not Given Documented by: [id number] Infusion: 07/14/19 03:48 Dose: 0 mls/hr Documented by: [id number] Admin: 07/13/19 18:02 Dose: 100 mls/hr Documented by: [id number] Miscellaneous (Floseal Hemostatic Matrix 10ml) 15 ml TOP ONCE ONE Stop: 07/13/19 11:26 Last Admin: 07/13/19 12:10 Dose: 10 ml Documented by: [id number]
[2019-07-14] MEDS ORDERED: VALSARTAN/HCTZ 320/12.5 MG TAB PO SCH (09:00)
[2019-07-14] MEDS ORDERED: SITAGLIPTIN PHOSPHATE 100 MG TAB PO SCH (09:00)
[2019-07-14] MEDS ORDERED: NON-FORMULARY MEDICATION (Turmeric 1 TAB) PO SCH (09:00)
[2019-07-14] MEDS ORDERED: NON-FORMULARY MEDICATION (Coq10 (Ubiquinol) 200 MG) PO SCH (09:00)
[2019-07-14] MEDS: VITAMIN B COMPLEX TAB PO SCH (09:11)
[2019-07-14] MEDS: LACTOBACILLUS ACIDOPHILUS (FLORANEX) TAB PO SCH (09:13)
[2019-07-14] MEDS: VALSARTAN 80 MG TAB PO SCH (09:13)
[2019-07-14] MEDS: hydroCHLOROthiazide 25 MG TAB PO SCH (09:13)
[2019-07-14] MEDS: CYANOCOBALAMIN (VITAMIN B-12) 2,500 MCG TAB.SUBL SL SCH (09:13)
[2019-07-14] MEDS: MULTIVITAMIN TAB PO SCH (09:14)
[2019-07-14] MEDS: PANTOprazole 40 MG TAB PO SCH (09:14)
[2019-07-14] MEDS: POTASSIUM CHLORIDE 20 MEQ TABCR PO SCH (09:14)
[2019-07-14] MEDS: AMLODIPINE BESYLATE 5 MG TAB PO SCH (09:14)
[2019-07-14] MEDS: CHOLECALCIFEROL 1,000 UNITS TAB PO SCH (09:14)
[2019-07-14] MEDS: ASPIRIN 81 MG ECTAB PO SCH (09:14)
[2019-07-14] MEDS: INSULIN ASPART 100 UNITS/ML 3 ML PEN SC SCH ×4 (09:28→21:04)
[2019-07-14] MEDS: INSULIN GLARGINE SOLOSTAR 100 UNITS/ML 3 ML PEN SC SCH ×2 (09:31→21:04)
--- NOTE | 2019-07-14 12:56 | Orthopedic Progress Note ---
Date of Service July 14, 2019 Assessment & Plan (1) Neurogenic claudication due to lumbar spinal stenosis: This time we will continue physical therapy monitor GIOVANNY output anticipate discharge home in the next few days. Present on Admission?: Yes Subjective Patient's back pain controlled leg pain markedly improved. Physical Exam Physical Exam: On exam patient is in the chair at the bedside is good strength testing appears comfortable. Results & Data Vital Signs (Past 12 Hours) Vital Signs Temp Pulse Resp BP BP Pulse Ox 07/14/19 12:00 36.4 C L 90 16 133/78 95 07/14/19 08:00 36.7 C 90 16 122/75 97 07/14/19 03:07 36.4 C L 95 H 16 114/67 96
[2019-07-14] MEDS: DOCUSATE SODIUM/SENNA 50/8.6MG TAB PO SCH (21:05)
[2019-07-14] MEDS: OMEGA-3 (PURIFIED FISH OIL) 1 GM CAP PO SCH (21:05)
[2019-07-14] MEDS: ASCORBIC ACID 500 MG TAB PO SCH (21:05)
[2019-07-14] MEDS: SERTRALINE HCL 50 MG TABLET PO SCH (21:06)
[2019-07-15] MEDS: POLYETHYLENE (MIRALAX) 17 GM PACK PO SCH ×2 (05:29→12:18)
[2019-07-15 06:22] LABS: Basophils # (auto) 0.02 K/uL (0-0.2); Basophils % (auto) 0.2 %; Eosinophils # (auto) 0.19 K/uL (0-0.5); Eosinophils % (auto) 2.4 %; Hematocrit (blood only) 31.3 % (37-47); Hemoglobin 10.9 g/dL (12.0-16.0); Immature Granulocytes # (auto) 0.03 K/uL (0.00-0.02); Immature Granulocytes % (auto) 0.4 %; Lymphocytes # (auto) 1.64 K/uL (1.2-3.4); Lymphocytes % (auto) 20.4 %; Mean Corpuscular Hemoglobin 30.3 pg (25-34); Mean Corpuscular Hgb Conc 34.8 g/dL (32-36); Mean Corpuscular Volume 86.9 fL (80-100); Mean Platelet Volume 8.2 fL (7.4-10.4); Monocytes % (auto) 8.7 %; Neutrophils # (auto) 5.47 K/uL (1.4-6.5); Neutrophils % (auto) 67.9 %; Platelet Count 259 K/uL (130-400); RDW Coefficient of Variation 13.2 % (11.5-14.5); RDW Standard Deviation 42.3 fL (36.4-46.3); White Blood Count 8.05 K/uL (4.8-10.8)
[2019-07-15] MEDS: OXYCODONE HCL IR 5 MG TAB (IMMEDIATE RELEASE) PO PRN ×2 (06:40→14:33)
[2019-07-15 06:59] LABS: BUN Creatinine Ratio 14.4 (10-20); Calcium 9.7 mg/dl (8.5-10.1); Creatinine Clr Calc Pharmacy 70.4 ml/min; Est GFR (African American) 76.1; Est GFR (Non-African American) 65.7; Potassium 3.7 mmol/L (3.5-5.1)
[2019-07-15] MEDS: CYANOCOBALAMIN (VITAMIN B-12) 2,500 MCG TAB.SUBL SL SCH (07:44)
[2019-07-15] MEDS: hydroCHLOROthiazide 25 MG TAB PO SCH (07:44)
[2019-07-15] MEDS: ASPIRIN 81 MG ECTAB PO SCH (07:44)
[2019-07-15] MEDS: VITAMIN B COMPLEX TAB PO SCH (07:44)
[2019-07-15] MEDS: POTASSIUM CHLORIDE 20 MEQ TABCR PO SCH (07:45)
[2019-07-15] MEDS: MULTIVITAMIN TAB PO SCH (07:45)
[2019-07-15] MEDS: CHOLECALCIFEROL 1,000 UNITS TAB PO SCH (07:45)
[2019-07-15] MEDS: AMLODIPINE BESYLATE 5 MG TAB PO SCH (07:45)
[2019-07-15] MEDS: LACTOBACILLUS ACIDOPHILUS (FLORANEX) TAB PO SCH (07:45)
[2019-07-15] MEDS: PANTOprazole 40 MG TAB PO SCH (07:46)
[2019-07-15] MEDS: VALSARTAN 80 MG TAB PO SCH (07:46)
[2019-07-15] MEDS: INSULIN ASPART 100 UNITS/ML 3 ML PEN SC SCH ×2 (07:51→12:33)
[2019-07-15] MEDS: INSULIN GLARGINE SOLOSTAR 100 UNITS/ML 3 ML PEN SC SCH (07:51)
--- NOTE | 2019-07-15 09:08 | Hospitalist Progress Note ---
Date of Service July 15, 2019 Assessment & Plan (1) S/P spinal surgery: This is a 59yo F with a PMH of HTN, HLD, DM II, MARIANELA on CPAP, mood disorder and other medical problems listed below who is: POD #2 s/p decompression and fusion L3-L5 with posterior instrumentation by Dr. Munguia. doing well post operatively EBL: 125ml; GIOVANNY drain output: 315ml pain/wound management per ortho activity and therapy as directed by ortho encourage incentive spirometry H&H stable at 10.9/31.3 (2) Diabetes mellitus, type 2: A1c of 7.0 in December, 6.2 today Hold home agents Lantus/Novolog per protocol BSG AC HS BSG 125 this a.m. (3) Anemia: H&H stable at 10.9/31.3 Previous hemoglobin 12.6 and 37.0 (4) Leukocytosis: resolved, wbc 8.05 No signs or symptoms of infection likely in setting of Postop state and dexamethasone administration (5) Hyponatremia: NA 134 improving, off IVF (6) Hypertension: BP controlled 126/81 Continue amlodipine, valsartan, HCTZ (7) Depression: mood stable Continue Zoloft PCP: Dr. Pulido ([facility]) Dispo: Per primary service Patient seen and examined in collaboration with Dr. Santizo, please see addendum Thank you for this consultation. We will follow the patient with you during their hospital stay. You can reach a member of the [facility] Hospitalist Team 11/03 via pager @ [phone]. Supervising Physician Co-Signing Physician Notes Attending addendum: The patient was seen and examined in medical floor He is a status post a lumbar decompression fusion, POD #2 Has been getting physical therapy and doing well On examination Lying in bed comfortably Hemodynamically stable ChestClear to auscultate bilaterally HeartS1-S2, no murmur appreciated Abdomenbenign, no organomegaly, bowel sounds present Extremitiestrace edema bilaterally Labs and imaging studies reviewed Medically stable Agree with assessment and plan as outlined by PATTIE Lance Dr Subjective Patient seen and examined in room 322-1. Follow-up lumbar decompression fusion POD #2 daily. Sitting up at bedside. She is passing a lot of flatus, but no BM yet. Hopeful after walking with therapy. No abdominal pain or nausea. Admits to taking miralax every 6hr. Complains of low back pain , 7/10 this morning. Ambulating frequently with PT and with her at night. Denies fever, chills, sweats, lightheadedness, dizziness, chest pain, shortness of breath, palpitations, nausea, vomiting, abdominal pain. No difficulty with urination. Review of Systems Review of Systems: All systems reviewed & are unremarkable except as noted in HPI & below Physical Exam Physical Exam: Gen: WD/WN, female, sitting up at bedside, NAD, A&O x3 HEENT: Normocephalic, atraumatic, conjunctivae moist, sclerae anicteric, mucous membranes moist. Lung: Clear to Auscultation bilaterally, no wheezes/rales/rhonchi Heart: Regular rate, regular rhythm, no murmurs, rubs, or gallops Abdomen: Obese abdomen, soft, NT, ND +BS x 4 Extremities: No edema, obese lower extremity, bilateral pedal pulse +2 Skin: Warm, no rash, negative turgor. Lumbar dressing CDI, GIOVANNY drain with serosanguineous drainage Results & Data Vital Signs (Past 12 Hours) Vital Signs Temp Pulse Resp BP Pulse Ox 07/15/19 06:38 36.9 C 97 H 18 126/81 95 07/14/19 23:11 37.0 C 92 H 16 121/65 96 Laboratory Results Short CBC 07/15/19 Range/Units 06:10 WBC 8.05 (4.8-10.8) K/uL Hgb 10.9 L (12.0-16.0) g/dL Hct 31.3 L (37-47) % Plt Count 259 (130-400) K/uL BMP 07/15/19 06:10 Sodium 134 L Potassium 3.7 Chloride 101 Carbon Dioxide 26 BUN 14 Creatinine 0.96 Glucose 130 H Calcium 9.7 Medications Administered Acetaminophen (Tylenol) 1,000 mg PO Q8H PRN PRN Reason: MILD Pain Rating 1,2,3 Stop: 08/12/19 13:38 Last Admin: 07/14/19 12:21 Dose: 1,000 mg Documented by: [id number] Amlodipine Besylate (Norvasc) [facility] [place] Stop: 08/13/19 08:59 Last Admin: 07/15/19 07:45 Dose: 5 mg Documented by: [id number] Admin: 07/14/19 09:14 Dose: 5 mg Documented by: [id number] Ascorbic Acid (Vitamin C) 500 mg PO QPM MARCELLO Stop: 08/12/19 20:59 Last Admin: 07/14/19 21:05 Dose: 500 mg Documented by: [id number] Admin: 07/13/19 21:26 Dose: 500 mg Documented by: [id number] Aspirin (Ecotrin Ectab) 81 [facility] [place] Stop: 08/13/19 08:59 Last Admin: 07/15/19 07:44 Dose: 81 mg Documented by: [id number] Admin: 07/14/19 09:14 Dose: 81 mg Documented by: [id number] Cyanocobalamin (Vitamin B-12) 5,000 mcg SL [facility] [place] Stop: 08/13/19 08:59 Last Admin: 07/15/19 07:44 Dose: 5,000 mcg Documented by: [id number] Admin: 07/14/19 09:13 Dose: 5,000 mcg Documented by: [id number] Fish Oil ([place]-3 (Purified Fish Oil)) 1 gm PO HS [facility] Stop: 08/12/19 20:59 Last Admin: 07/14/19 21:05 Dose: 1 gm Documented by: [id number] Admin: 07/13/19 21:25 Dose: 1 gm Documented by: [id number] Hydrochlorothiazide (Hctz) 12.5 mg PO QAM [facility] Stop: 08/13/19 08:59 Last Admin: 07/15/19 07:44 Dose: 12.5 mg Documented by: [id number] Admin: 07/14/19 09:13 Dose: 12.5 mg Documented by: [id number] Insulin Aspart (Novolog Flexpen) 0 units SC ACHS MARCELLO Stop: 08/12/19 14:39 Last Admin: 07/15/19 07:51 Dose: 9 units Documented by: [id number] Cosigned by: [id number] Admin: 07/14/19 21:04 Dose: 1 units Documented by: [id number] Cosigned by: [id number] Admin: 07/14/19 17:44 Dose: 8 units Documented by: [id number] Cosigned by: [id number] Admin: 07/14/19 12:43 Dose: 4 units Documented by: [id number] Cosigned by: [id number] Admin: 07/14/19 09:28 Dose: 4 units Documented by: [id number] Cosigned by: [id number] Admin: 07/13/19 21:39 Dose: 7 units Documented by: [id number] Cosigned by: [id number] Admin: 07/13/19 17:55 Dose: 10 units Documented by: [id number] Cosigned by: [id number] Admin: 07/13/19 17:00 Dose: Not Given Documented by: [id number] Cosigned by: [id number] Insulin Glargine (Lantus Solostar Pen) 0 - 20 units SC BID MARCELLO Stop: 08/13/19 08:59 Last Admin: 07/15/19 07:51 Dose: 10 units Documented by: [id number] Cosigned by: [id number] Admin: 07/14/19 21:04 Dose: 20 units Documented by: [id number] Cosigned by: [id number] Admin: 07/14/19 09:31 Dose: 10 units Documented by: [id number] Cosigned by: [id number] Lactobacillus Acidophilus (Floranex) 1 tab PO QAM MARCELLO Stop: 08/13/19 08:59 Last Admin: 07/15/19 07:45 Dose: 1 tab Documented by: [id number] Admin: 07/14/19 09:13 Dose: 1 tab Documented by: [id number] Lorazepam (Ativan) 0.5 mg PO Q8H PRN PRN Reason: Sedation/Anxiety Stop: 08/12/19 13:38 Last Admin: 07/15/19 00:02 Dose: 0.5 mg Documented by: [id number] Menthol (Nice) 1 guru BUCCAL Q1H PRN PRN Reason: Cough Stop: 08/12/19 17:33 Last Admin: 07/13/19 18:02 Dose: 1 guru Documented by: [id number] Multivitamins (Multivitamin Tab) 1 tab PO QAM MARCELLO Stop: 08/13/19 08:59 Last Admin: 07/15/19 07:45 Dose: 1 tab Documented by: [id number] Admin: 07/14/19 09:14 Dose: 1 tab Documented by: [id number] Oxycodone HCl (Roxicodone Immediate Rel) 5 - 10 mg PO Q4H PRN PRN Reason: Moderate-Severe Pain Stop: 07/27/19 13:38 Last Admin: 07/15/19 06:40 Dose: 10 mg Documented by: [id number] Admin: 07/14/19 21:03 Dose: 10 mg Documented by: [id number] Admin: 07/14/19 16:16 Dose: 10 mg Documented by: [id number] Admin: 07/14/19 09:11 Dose: 10 mg Documented by: [id number] Admin: 07/14/19 03:50 Dose: 10 mg Documented by: [id number] Admin: 07/13/19 21:24 Dose: 10 mg Documented by: [id number] Admin: 07/13/19 16:11 Dose: 10 mg Documented by: [id number] Pantoprazole Sodium (Protonix) 40 mg PO QAM MARCELLO Stop: 08/13/19 08:59 Last Admin: 07/15/19 07:46 Dose: 40 mg Documented by: [id number] Admin: 07/14/19 09:14 Dose: 40 mg Documented by: [id number] Polyethylene Glycol (Miralax Powder Packet) 17 gm PO Q6 MARCELLO Stop: 08/13/19 05:59 Last Admin: 07/15/19 05:29 Dose: 17 gm Documented by: [id number] Admin: 07/14/19 23:20 Dose: 17 gm Documented by: [id number] Admin: 07/14/19 17:44 Dose: 17 gm Documented by: [id number] Admin: 07/14/19 12:21 Dose: 17 gm Documented by: [id number] Admin: 07/14/19 05:23 Dose: 17 gm Documented by: [id number] Potassium Chloride (Klor-Con M20) 20 meq PO QAM MARCELLO Stop: 08/13/19 08:59 Last Admin: 07/15/19 07:45 Dose: 20 meq Documented by: [id number] Admin: 07/14/19 09:14 Dose: 20 meq Documented by: [id number] Senna/Docusate Sodium (Senokot S) 2 tab PO HS MARCELLO Stop: 08/12/19 20:59 Last Admin: 07/14/19 21:05 Dose: 2 tab Documented by: [id number] Admin: 07/13/19 21:25 Dose: 2 tab Documented by: [id number] Sertraline HCl (Zoloft) 50 mg PO HS MARCELLO Stop: 08/12/19 20:59 Last Admin: 07/14/19 21:06 Dose: 50 mg Documented by: [id number] Admin: 07/13/19 21:25 Dose: 50 mg Documented by: [id number] Valsartan (Diovan) 320 [facility] [place] Stop: 08/13/19 08:59 Last Admin: 07/15/19 07:46 Dose: 320 mg Documented by: [id number] Admin: 07/14/19 09:13 Dose: 320 mg Documented by: [id number] Vitamin B Complex (Vitamin B Complex) 1 tab PO [facility] Stop: 08/13/19 08:59 Last Admin: 07/15/19 07:44 Dose: 1 tab Documented by: [id number] Admin: 07/14/19 09:11 Dose: 1 tab Documented by: [id number] Vitamin D (Vitamin D3) 2,000 units PO [facility] Stop: 08/13/19 08:59 Last Admin: 07/15/19 07:45 Dose: 2,000 units Documented by: [id number] Admin: 07/14/19 09:14 Dose: 2,000 units Documented by: [id number] Discontinued Medications Acetaminophen (Tylenol) 1,000 mg PO PREOP [facility] Stop: 07/13/19 18:00 Last Admin: 07/13/19 09:32 Dose: 1,000 mg Documented by: [id number] Bacitracin (Bacitracin) Confirm Administered Dose 50,000 units .ROUTE .STK-MED ONE Stop: 07/13/19 10:15 Last Admin: 07/13/19 11:04 Dose: 50,000 units Documented by: [id number] Bupivacaine HCl/Epinephrine Bitart (Bupivacaine 0.25%-Epi [id number]) Confirm Admi nistered Dose 30 ml .ROUTE .STK-MED ONE Stop: 07/13/19 10:15 Last Admin: 07/13/19 11:05 Dose: 20 ml Documented by: [id number] Celecoxib (Celebrex) 200 mg PO PREOP [facility] Stop: 07/13/19 18:00 Last Admin: 07/13/19 09:32 Dose: 200 mg Documented by: [id number] Fentanyl Citrate (Fentanyl Citrate) 50 mcg IV Q5M PRN PRN Reason: PACU Use Only-Pain Stop: 07/13/19 15:38 Last Admin: 07/13/19 12:57 Dose: 50 mcg Documented by: [id number] Admin: 07/13/19 12:52 Dose: 50 mcg Documented by: [id number] Gabapentin (Neurontin) 600 mg PO PREOP [facility] Stop: 07/13/19 18:00 Last Admin: 07/13/19 09:31 Dose: 600 mg Documented by: [id number] Lactated Ringer's (Lr) 1,000 mls @ 15 mls/hr IV .Q24H MARCELLO Stop: 07/14/19 05:59 Last Infusion: 07/13/19 10:40 Dose: 0 mls/hr Documented by: [id number] Admin: 07/13/19 09:41 Dose: 15 mls/hr Documented by: [id number] Cefazolin Sodium (Ancef 2000mg) 2,000 mg in 15 mls @ 3.75 mls/min IV PREOP MARCELLO; Protocol Stop: 07/13/19 18:00 Last Admin: 07/13/19 10:40 Dose: 3.75 mls/min Documented by: [id number] Cefazolin Sodium (Ancef 2000mg) 2,000 mg in 15 mls @ 3.75 mls/min IV Q8H MARCELLO; Protocol Stop: 07/14/19 02:03 Last Admin: 07/14/19 02:08 Dose: 3.75 mls/min Documented by: [id number] Admin: 07/13/19 17:56 Dose: 3.75 mls/min Documented by: [id number] Sodium Chloride (Nss 1000ml) 1,000 mls @ 100 mls/hr IV .Q10H MARCELLO Stop: 08/12/19 13:38 Last Admin: 07/14/19 03:48 Dose: Not Given Documented by: [id number] Infusion: 07/14/19 03:48 Dose: 0 mls/hr Documented by: [id number] Admin: 07/13/19 18:02 Dose: 100 mls/hr Documented by: [id number] Insulin Glargine (Lantus Solostar Pen) 0 - 40 units SC BID MARCELLO; Protocol Stop: 08/12/19 20:59 Last Admin: 07/13/19 21:32 Dose: 40 units Documented by: [id number] Cosigned by: [id number] Miscellaneous (Floseal Hemostatic Matrix 10ml) 15 ml TOP ONCE ONE Stop: 07/13/19 11:26 Last Admin: 07/13/19 12:10 Dose: 10 ml Documented by: [id number]
--- NOTE | 2019-07-15 12:27 | Discharge Summary ---
Date of Service July 15, 2019 Admission HPI Per Admitting Provider This is a 59-year-old female presents with worsening back and right leg pain. After failing extensive course of nonoperative care is here for surgical intervention. Principal Diagnosis Lumbar spinal stenosis with neurogenic claudication Discharge Data Allergies Allergy/AdvReac Type Severity Reaction Status Date / Time moxifloxacin Allergy Intermediate RASH, EARS Verified 07/13/19 09:19 SWELLED Esbnpza-Yxk-Awl Reductase AdvReac Severe MUSCLE Verified 07/13/19 09:19 Inhibitor SPASMS Consultations 07/13/19 13:39 Consult Case Management - Discharge Planning Routine Consult Hospitalist Routine Procedures Performed Operation Date: 07/13/19 10:35 Actual Procedures p L4-L5 Transforaminal Lumbar Interbody Fusion,use of Infuse, Spinal Cord Monitoring(Not Applicable) - Demetri Munguia DO Ordered Studies 07/13/19 10:35 FL fluoroscopy <1hr Routine FL lumbar spine 2-3V Routine Hospital Course (1) Neurogenic claudication due to lumbar spinal stenosis: Patient underwent lumbar decompression fusion tolerated this well and went to the orthopedic floor postoperative. Postop day 1 leg symptoms markedly improved. She progressed to postop day #2. She is quite comfortable. Neurologically intact. GIOVANNY drain decreasing appropriately. Subsequently discharged home. Discharge orders and instructions can be found the chart for further review. Total Time Total Time Spent Total Time Spent (In Minutes): 20 minutes Discharge Plan Discharge Items Patient Disposition: Home - Self-Care Reason For Visit: LUMBAR INTERVERTEBRAL DISC DEGENERATION Discharge Diagnosis: Lumbar spinal stenosis with neurogenic claudication Activity: As commented below Non-emergency contact: Primary Care Provider Call non-emergency contact if: you have any medication questions Follow-up/Referrals: Demetri Pulido M.D. [Primary Care Provider] - Diet: Regular Addtl Attending Provider Instructions: ACTIVITY RECOMMENDATIONS: SELF CARE INSTRUCTIONS AFTER THORACIC/LUMBAR FUSIONS 1. You may walk to your tolerance. It is good exercise for your legs and back. Expect some back and intermittent leg aches and pains. 2. You may perform "counter-top" level activities (make a sandwich, jaden with a project, etc.). 3. No bending or lifting of more than 10 pounds or back twisting of any nature (roll like a log when turning in bed). 4. You may ride in a car for 20-30 minutes at a time. No driving until after your first visit with your doctor. 5. Frequent changes of position and restricting sitting to 30 minutes at a time will help limit the amount of back spasms and stiffness you may experience. 6. You may discontinue the use of ambulatory aids (cane, crutches, etc.) once your strength and confidence allow. 7. You may gear tooth lapping machine operator the shower and let water strike your incision when you arrive home at least once daily. Do not take a tub bath, sit in a hot tub or go into a swimming pool until after your first recheck in the office. SPECIAL CARE INSTRUCTIONS: VERY IMPORTANT TO READ AND REVIEW A. Your surgical incision has been closed with a cosmetic suture under the skin that will dissolve in about 6 weeks. In 14 days, you can use a pair of clean scissors and cut the suture that is left outside of the skin at the ends of your incision. 1. The small skin tapes can be removed 7 days after surgery if they have not fallen off by that point. 2. You may keep the wound open to air as much as possible to promote healing after post-op day number 5 unless told otherwise by your doctor. 3. If you think the wound looks like it is becoming infected (redness or worsening drainage) and/or you are experiencing fever, chill or worsening back pain and muscle spasms, contact the office so that we may evaluate you as soon as possible. B. Complications are uncommon, but please contact us if you have any signs or symptoms of: 1. wound infection (fever higher than 102.5 degrees F, redness, separation of wound, drainage, or increasing pain from the incision) 2. blood clots in legs (pain, swelling, redness and warmth in legs) 3. urinary tract infection (fever higher than 102.5 degrees F, burning upon urination or increased frequency of urination) 4. nerve problems (inability to walk on your toes or heels, numbness, loss of bowel or bladder control) 5. any other symptoms that concern you C. Please call the office at if you have any concerns or questions about your operation or recovery. D. No smoking! Smoking drastically decreases the chance of a solid fusion. E. Do not take any anti-inflammatory medications (Indocin, Advil, Motrin, Aspirin, Naprosyn, etc.) as these may inhibit the chance of a solid fusion. Tylenol is okay to take for pain. MANAGING PAIN AFTER SPINAL SURGERY 1. Narcotic medication is intended for short-term use and will be provided for surgical pain. Surgical pain usually lasts for a period of 4-6 weeks. Narcotic medication includes Percocet, Vicodin, Darvocet, Tylenol #3 or Lortab. 2. Longer-term pain is more appropriately treated with non-narcotic medication such as Tylenol ES. 3. Muscle spasm is not appropriately treated with narcotics. Muscle relaxers such as Soma, Flexeril or Skelaxin can be used along with Tylenol ES. 4. Remember that we all live with some "aches and pains". This is not unusual or uncommon after an injury or as we get older. a. Back pain is expected and may include muscle spasms for 4 to 6 weeks after surgery. The pain should gradually improve. If the pain worsens for no apparent reason, please contact the office. b. Intermittent leg pain may also be experienced and should not be concerned about unless it worsens for no apparent reason. If so, please contact the office. 5. We will provide appropriate medication within the normal guidelines of their prescribed use. We will also be very cautious and aware of potential abuse and extended duration of patients' medication needs. a. Pain medications are for your comfort and to assist with sleep and rest so that the tissue can heal. They are not provided in order to return to normal activity and should not be used through the day. To do so or worsening pain at night can result from ongoing tissue damage and development of tolerance to the prescribed medicine. 6. Please allow 2-3 days to process refills. Prescriptions will not be mailed but must be picked up at the office. FOLLOW UP VISIT: Keep your scheduled follow-up appointment. Any questions, please call the office at . Pending Studies at Discharge: No Stand-Alone Forms: My [facility] [employer], Opioid Pain Management, Smoking Cessation Medications and DC Order Prescriptions: New tramadol 50 mg tablet 50 mg PO Q6H PRN (Reason: pain, moderate) Qty: 30 RF: 0 oxycodone 5 mg tablet 5 mg PO Q6H PRN (Reason: pain, severe) Qty: 30 RF: 0 Continued multivitamin Tablet 1 tab PO QAM RF: 0 potassium chloride [Klor-Con 10] 10 mEq Tablet Extended Release 20 meq PO QAM RF: 0 amlodipine 5 mg Tablet 5 mg PO QAM RF: 0 alprazolam 0.5 mg Tablet 0.5 mg PO TID PRN (Reason: Anxiety) RF: 0 ascorbic acid (vitamin C) [Vitamin C] 500 mg Tablet 1 tab PO QPM RF: 0 sertraline 50 mg Tablet 50 mg PO HS RF: 0 B-complex with vitamin C [Super B Complex-Vitamin C] Tablet 1 tab PO QAM RF: 0 Prilosec OTC 20 mg Tablet,Delayed Release (Dr/Ec) 20 mg PO QAM RF: 0 Levemir FlexTouch U-100 Insuln 100 unit/mL (3 mL) Insulin Pen 40 unit SUBCUT HS RF: 0 valsartan-hydrochlorothiazide 320-12.5 mg Tablet 1 tab PO QAM RF: 0 metformin [Glumetza] 500 mg Tablet,Er Lisa.Retention 24 Hr 500 mg PO PM RF: 0 cholecalciferol (vitamin D3) [Vitamin D3] 1,000 unit Tablet 2,000 unit PO QAM RF: 0 Januvia 100 mg Tablet 100 mg PO QAM RF: 0 omega 5-xga-xwv-fish oil [Fish Oil] 1,000 mg (120 mg-180 mg) Capsule 1 cap PO HS RF: 0 cyanocobalamin (vitamin B-12) [Vitamin B-12] 5,000 mcg Tablet, Sublingual 5,000 mcg SUBLINGUAL QAM RF: 0 Culturelle 15 billion cell Capsule, Sprinkle 1 cap PO QAM RF: 0 Airborne (with lysine acetate) 250-12.5 mg Tablet,Chewable 4 tab PO QAM PRN (Reason: preventive) RF: 0 Praluent Pen 75 mg/mL Pen Injector See Rx Instructions .ROUTE .COMPLEX RF: 0 meloxicam 7.5 mg Tablet 7.5 mg PO BID RF: 0 tramadol 50 mg Tablet 50 mg PO Q4H PRN (Reason: Pain) RF: 0 aspirin [Aspir-81] 81 mg Tablet,Delayed Release (Dr/Ec) 81 mg PO QAM RF: 0 ondansetron 4 mg Tablet,Disintegrating 4 mg PO Q8H PRN (Reason: Nausea) RF: 0 cinnamon bark [Cinnamon] 500 mg Capsule 1,000 mg PO BID RF: 0 coQ10 (ubiquinol) 200 mg Capsule 200 mg PO QAM RF: 0 fluticasone propionate [Flonase Allergy Relief] 50 mcg/actuation [place],Suspension 2 spray INTRANASAL DAILY PRN (Reason: Congestion) RF: 0 melatonin 1 mg Tablet 1 mg PO HS PRN (Reason: Sleep) RF: 0 turmeric 1 tab PO DAILY RF: 0 Discharge Orders: Discharge Order (Routine); Ordered 07/15/19 Ordered By: Demetri Martines/Other Patient Handouts: DVT Prevent Admission Data Admit Date/Time: 07/13/19 12:31 Attending Provider: Demetri Munguia Admit Provider: Demetri Munguia Primary Care Provider: Demetri Pulido Other Providers: Ronaldo Deutsch ; Naheed Santizo Other Interventions: Discharge Summary Assessment (RN) Last Done: 07/15/19 10:26
== END 2019-07-15 16:28 | disposition home or self-care (01) | DRG 454 ==
LOC: ASU 08:48 → 3E 12:31